=== PATIENT | male | born 1980 | race Caucasian/White ===

== ENCOUNTER 2023-05-03 14:52 | Emergency (ER) | payer OTHER, SELFPAY ==
--- NOTE | 2023-05-03 14:58 | ECG_ITS ---
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
[2023-05-03 15:00] VITALS: BP 154/89; PULSE 68; RESP 16; TEMP 36.8; O2SAT 98; BMI 30.5
[2023-05-03 15:01] VITALS: BP 154/89; PULSE 57; PULSE 63; RESP 16; RESP 19; O2SAT 95; O2SAT 98
--- NOTE | 2023-05-03 15:01 | XR_ITS ---
[address] [address] Patient Name: BALAJI LANDEROS MRN: [id number] date: 1980 Sex: M Assigned Patient Location: ER Current Patient Location: ER Accession/Order Number: [id number] Exam Date: 05/03/2023 15:22 Report Date: 05/03/2023 15:36 At the request of: LINDSAY MORGAN Procedure: XR chest 2V EXAMINATION: XR chest 2V HISTORY: pain COMPARISON: No relevant comparison available. TECHNIQUE: PA and lateral FINDINGS: LUNGS: No significant pulmonary parenchymal abnormalities. VASCULATURE: No increased pulmonary vasculature. PLEURA: No pneumothorax, effusion, or pleural thickening. CARDIAC: No cardiomegaly or cardiac silhouette abnormality. MEDIASTINUM: No visible mass or adenopathy. BONES: No fracture or visible bone lesion. OTHER: Negative. IMPRESSION: No acute disease. Electronically authenticated by: NELIA MERAZ Date: 05/03/2023 15:36
[2023-05-03 15:10] VITALS: PULSE 71
--- NOTE | 2023-05-03 15:13 | ED_ITS ---
Documented by User: Kandace Morgan 05/03/23 16:39 HPI - General Adult General Chief complaint: Chest Pain Stated complaint: DIZZINESS, BURNING IN CHEST Time Seen by Provider: 05/03/23 14:55 Source: patient Mode of arrival: walk-in Limitations: no limitations History of Present Illness HPI narrative: 42-year-old male with a history hypertension. Presents emergency room chief complaint of burning sensation to his chest. He states he has some radiation of the burning to the right side of his chest. Denies any nausea vomiting or shortness of breath. Denies any known heart history. He does have a history of high blood pressure and takes medications daily. Patient also takes omeprazole daily. He states he's had the symptoms on and off since April 30 but worsened when he woke this morning. She stated left lower quadrant abdominal pain and then had tearing sensation to his chest.His vital signs are stable he is not febrile. Pain is not reproduced with palpation to the chest. He rates the pain as a burning sensation in a two out of ten at this time Related Data Home Medications Medication Instructions Recorded Confirmed amlodipine 5 mg tablet 5 mg PO QDAY 05/03/23 05/03/23 atenolol 50 mg tablet 50 mg PO Q24H 05/03/23 05/03/23 atorvastatin 40 mg tablet 40 mg PO .QD 05/03/23 05/03/23 dextroamphetamine-amphetamine ER 30 mg PO BID 05/03/23 05/03/23 30 mg 24hr capsule,extend release montelukast 10 mg tablet 10 mg PO .HS 05/03/23 05/03/23 Allergies Allergy/AdvReac Type Severity Reaction Status Date / Time Penicillins AdvReac Verified 05/03/23 15:00 Review of Systems ROS Narrative All Systems are negative except as noted/marked.All systems reviewed and otherwise negative Exam Narrative Exam Narrative: Patient is a All Systems are negative except as noted/marked.All systems reviewed and otherwise negative Nurses note and vital signs reviewed and patient is not hypoxic. General: The patient appears well and in no apparent distress. Patient is resting comfortably on cart. Skin: Warm, dry, no pallor noted. There is no rash noted. Head: Normocephalic, atraumatic Eye: Normal conjunctiva, no drainage, EOMI. PERRL Ears, Nose, Mouth, and Throat: oral mucosa is moist. Nares patent. Mouth without vesicles. Ear canals patent. Tm's without Erythema Cardiovascular: Regular Rate and Rhythm Respiratory: Patient is in no distress, no accessory muscle use, lungs are clear to auscultation, no wheezing, rales or rhonchi Back: non-tender, no CVA tenderness bilaterally to percussion. GI: Normal bowel sounds, no tenderness to palpation, no masses appreciated. No rebound, guarding, or rigidity noted. Musculoskeletal: The patient has no evidence of calf tenderness, no pitting edema, symmetrical pulses noted bilaterally Neurological: A&O x4, normal speech Psychiatric: Cooperative Constitutional Vital Signs - 24 hr 05/03/23 15:00 05/03/23 15:01 05/03/23 15:01 Temperature 98.3 F Pulse Rate 63 57 L Pulse Rate [Monitor] 68 Respiratory Rate 16 19 16 Blood Pressure 154/89 H 154/89 H Blood Pressure [Right Arm] 154/89 H Pulse Oximetry 98 98 95 05/03/23 15:53 05/03/23 16:00 05/03/23 16:00 Temperature Pulse Rate 57 L 59 L Pulse Rate [Monitor] Respiratory Rate 14 15 Blood Pressure 139/75 H 130/70 H 130/70 H Blood Pressure [Right Arm] Pulse Oximetry 96 96 05/03/23 16:30 Temperature Pulse Rate 58 L Pulse Rate [Monitor] Respiratory Rate 19 Blood Pressure 136/80 H Blood Pressure [Right Arm] Pulse Oximetry 96 Course Vital Signs Vital signs: Vital Signs Temperature 98.3 F 05/03/23 15:00 Pulse Rate 68 05/03/23 15:00 Respiratory Rate 16 05/03/23 15:00 Blood Pressure 154/89 H 05/03/23 15:00 Pulse Oximetry 98 05/03/23 15:00 Temperature 98.3 F 05/03/23 15:00 Pulse Rate 58 L 05/03/23 16:30 Respiratory Rate 19 05/03/23 16:30 Blood Pressure 136/80 H 05/03/23 16:30 Pulse Oximetry 96 05/03/23 16:30 Medical Decision Making MDM Narrative Medical decision making narrative: Patient presented with a chief complaint of chest wall pain, indigestion and burning sensation for the last several days. Cardiac workup performed here today. Patient heart score is a 1-2 as he has a history of hypertension and hyperlipidemia. Patient's symptoms have improved with Pepcid and Toradol here in the emergency room. I believe most of his symptoms are due to anxiety indigestion. Patient states she's had a lot of picnics recently and also drinking a lot of clot alcoholic beverages which tend to give him indigestion. Patient's EKG was in normal limits here today as well. Patient's stable to be discharged home. Differential Diagnosis Differential Diagnosis: Ingestion, anxiety, chest pain Medical Records Medical records reviewed: Yes I reviewed the patient's medical records Lab Data Lab results reviewed: Yes I reviewed the patient's lab results Labs: Lab Results 05/03/23 Range/Units 15:10 WBC 7.2 (4.0-11.0) 10^3/uL RBC 5.35 (4.70-6.10) 10^6/uL Hgb 16.8 (14.0-18.0) g/dL Hct 48.6 (42.0-54.0) % MCV 90.8 (80.0-94.0) fL MCH 31.4 (25.9-34.0) pg MCHC 34.6 (29.9-35.2) g/dL RDW 13.0 (11.0-15.0) % Plt Count 163 (150-450) 10^3/uL MPV 10.1 (9.5-13.5) fL Neut % (Auto) 61.7 (43.0-75.0) % Lymph % (Auto) 28.1 (20.5-60.0) % [place] % (Auto) 8.6 (1.7-12.0) % Eos % (Auto) 1.1 (0.9-7.0) % Baso % (Auto) 0.4 (0.2-2.0) % Neut # (Auto) 4.5 (1.4-6.5) 10^3/uL Lymph # (Auto) 2.0 (1.2-3.8) 10^3/uL [place] # (Auto) 0.6 (0.3-0.8) 10^3/uL Eos # (Auto) 0.1 (0.0-0.7) 10^3/uL Baso # (Auto) 0.0 (0.0-0.1) 10^3/uL Abs Immat Gran (auto) 0.01 (0.00-0.03) 10^3/uL Imm/Tot Granulo (auto) 0.1 (0.0-0.5) % PT 11.2 (9.0-11.6) sec INR 1.06 D-Dimer <0.19 (<=0.59) mg/L FEU Sodium 138 (136-145) mmol/L Potassium 3.6 (3.5-5.1) mmol/L Chloride 105 (98-107) mmol/L Carbon Dioxide 27.4 (21.0-32.0) mmol/L Anion Gap 9.2 BUN 16.0 (7.0-18.0) mg/dL Creatinine 1.03 (0.70-1.30) mg/dL Est GFR ( Amer) >60 (>=60) Est GFR (Non-Af Amer) >60 (>=60) BUN/Creatinine Ratio 15.5 Glucose 120 H (74-106) mg/dL Calcium 9.1 (8.5-10.1) mg/dL Total Bilirubin 0.6 (0.2-1.0) mg/dL AST 33 (15-37) U/L ALT 42 (16-63) U/L Alkaline Phosphatase 65 (46-116) U/L Troponin I High Sens 46.6 (4.0-76.1) pg/mL NT-Pro-B Natriuret Pep 85.0 (<=450.0) pg/mL Total Protein 7.2 (6.4-8.2) g/dL Albumin 4.3 (3.4-5.0) g/dL Globulin 2.9 g/dL Albumin/Globulin Ratio 1.5 Lipase 187.0 (73.0-393.0) U/L ECG Data Attestation: ?I have reviewed the pertinent ECG results. Interpretation: 1503EKG shows a normal sinus rhythm with a rate of seventy-one beats. PA interval 164 ms ,QRS duration 104 ms, no ST elevation or depression, no STEMI Discharge Plan Discharge Chief Complaint: Chest Pain Clinical Impression: Gastritis, Chest pain Patient Disposition: Home, Self-Care Time of Disposition Decision: 16:38 Condition: Good Prescriptions / Home Meds: No Action amlodipine 5 mg tablet 5 mg PO QDAY atorvastatin 40 mg tablet 40 mg PO .QD atenolol 50 mg tablet 50 mg PO Q24H dextroamphetamine-amphetamine 30 mg capsule,extended release 24hr 30 mg PO BID montelukast 10 mg tablet 10 mg PO .HS Instructions: Chest Pain (ED), GERD (Gastroesophageal Reflux Disease) in Children (ED), Diet for Stomach Ulcers and Gastritis (ED) Stand Alone Forms: Portal Instructions Referrals: GEORGIA YING [Primary Care Provider] - 1 week Discharge Date/Time: 05/03/23 16:53 Documented by User: Clem Guillen 05/03/23 17:43 HPI - General Adult General Chief complaint: Chest Pain Stated complaint: DIZZINESS, BURNING IN CHEST Time Seen by Provider: 05/03/23 14:55 Related Data Home Medications Medication Instructions Recorded Confirmed amlodipine 5 mg tablet 5 mg PO QDAY 05/03/23 05/03/23 atenolol 50 mg tablet 50 mg PO Q24H 05/03/23 05/03/23 atorvastatin 40 mg tablet 40 mg PO .QD 05/03/23 05/03/23 dextroamphetamine-amphetamine ER 30 mg PO BID 05/03/23 05/03/23 30 mg 24hr capsule,extend release montelukast 10 mg tablet 10 mg PO .HS 05/03/23 05/03/23 Allergies Allergy/AdvReac Type Severity Reaction Status Date / Time Penicillins AdvReac Verified 05/03/23 15:00 Exam Constitutional Vital Signs - 24 hr 05/03/23 15:00 05/03/23 15:01 05/03/23 15:01 Temperature 98.3 F Pulse Rate 63 57 L Pulse Rate [Monitor] 68 Respiratory Rate 16 19 16 Blood Pressure 154/89 H 154/89 H Blood Pressure [Right Arm] 154/89 H Pulse Oximetry 98 98 95 05/03/23 15:53 05/03/23 16:00 05/03/23 16:00 Temperature Pulse Rate 57 L 59 L Pulse Rate [Monitor] Respiratory Rate 14 15 Blood Pressure 139/75 H 130/70 H 130/70 H Blood Pressure [Right Arm] Pulse Oximetry 96 96 05/03/23 16:30 Temperature Pulse Rate 58 L Pulse Rate [Monitor] Respiratory Rate 19 Blood Pressure 136/80 H Blood Pressure [Right Arm] Pulse Oximetry 96 Course Vital Signs Vital signs: Vital Signs Temperature 98.3 F 05/03/23 15:00 Pulse Rate 68 05/03/23 15:00 Respiratory Rate 16 05/03/23 15:00 Blood Pressure 154/89 H 05/03/23 15:00 Pulse Oximetry 98 05/03/23 15:00 Temperature 98.3 F 05/03/23 15:00 Pulse Rate 58 L 05/03/23 16:30 Respiratory Rate 19 05/03/23 16:30 Blood Pressure 136/80 H 05/03/23 16:30 Pulse Oximetry 96 05/03/23 16:30 Medical Decision Making MDM Narrative Medical decision making narrative: Patient presented with a chief complaint of chest wall pain, indigestion and burning sensation for the last several days. Cardiac workup performed here today. Patient heart score is a 1-2 as he has a history of hypertension and hyperlipidemia. Patient's symptoms have improved with Pepcid and Toradol here in the emergency room. I believe most of his symptoms are due to anxiety indigestion. Patient states she's had a lot of picnics recently and also drinking a lot of clot alcoholic beverages which tend to give him indigestion. Patient's EKG was in normal limits here today as well. Patient's stable to be discharged home. For this patient encounter I reviewed the mid-level provider?s documentation, medical decision-making and treatment plan, and I personally spent time with this patient. Shared APC visit, physician attestation: [id number]: This visit was performed by both a physician and an APC. I personally evaluated and examined the patient. I performed all aspects of MDM as documented. - JHay, DO Lab Data Labs: Lab Results 05/03/23 Range/Units 15:10 WBC 7.2 (4.0-11.0) 10^3/uL RBC 5.35 (4.70-6.10) 10^6/uL Hgb 16.8 (14.0-18.0) g/dL Hct 48.6 (42.0-54.0) % MCV 90.8 (80.0-94.0) fL MCH 31.4 (25.9-34.0) pg MCHC 34.6 (29.9-35.2) g/dL RDW 13.0 (11.0-15.0) % Plt Count 163 (150-450) 10^3/uL MPV 10.1 (9.5-13.5) fL Neut % (Auto) 61.7 (43.0-75.0) % Lymph % (Auto) 28.1 (20.5-60.0) % [place] % (Auto) 8.6 (1.7-12.0) % Eos % (Auto) 1.1 (0.9-7.0) % Baso % (Auto) 0.4 (0.2-2.0) % Neut # (Auto) 4.5 (1.4-6.5) 10^3/uL Lymph # (Auto) 2.0 (1.2-3.8) 10^3/uL [place] # (Auto) 0.6 (0.3-0.8) 10^3/uL Eos # (Auto) 0.1 (0.0-0.7) 10^3/uL Baso # (Auto) 0.0 (0.0-0.1) 10^3/uL Abs Immat Gran (auto) 0.01 (0.00-0.03) 10^3/uL Imm/Tot Granulo (auto) 0.1 (0.0-0.5) % PT 11.2 (9.0-11.6) sec INR 1.06 D-Dimer <0.19 (<=0.59) mg/L FEU Sodium 138 (136-145) mmol/L Potassium 3.6 (3.5-5.1) mmol/L Chloride 105 (98-107) mmol/L Carbon Dioxide 27.4 (21.0-32.0) mmol/L Anion Gap 9.2 BUN 16.0 (7.0-18.0) mg/dL Creatinine 1.03 (0.70-1.30) mg/dL Est GFR ( Amer) >60 (>=60) Est GFR (Non-Af Amer) >60 (>=60) BUN/Creatinine Ratio 15.5 Glucose 120 H (74-106) mg/dL Calcium 9.1 (8.5-10.1) mg/dL Total Bilirubin 0.6 (0.2-1.0) mg/dL AST 33 (15-37) U/L ALT 42 (16-63) U/L Alkaline Phosphatase 65 (46-116) U/L Troponin I High Sens 46.6 (4.0-76.1) pg/mL NT-Pro-B Natriuret Pep 85.0 (<=450.0) pg/mL Total Protein 7.2 (6.4-8.2) g/dL Albumin 4.3 (3.4-5.0) g/dL Globulin 2.9 g/dL Albumin/Globulin Ratio 1.5 Lipase 187.0 (73.0-393.0) U/L Imaging Data Chest x-ray: Radiologist's impression: Patient Name: BALAJI LANDEROS MRN: [id number] date: 1980 Sex: M Assigned Patient Location: ER Current Patient Location: ER Accession/Order Number: [id number] Exam Date: 05/03/2023 15:22 Report Date: 05/03/2023 15:36 At the request of: KANDACE MORGAN Procedure: XR chest 2V EXAMINATION: XR chest 2V HISTORY: pain COMPARISON: No relevant comparison available. TECHNIQUE: PA and lateral FINDINGS: LUNGS: No significant pulmonary parenchymal abnormalities. VASCULATURE: No increased pulmonary vasculature. PLEURA: No pneumothorax, effusion, or pleural thickening. CARDIAC: No cardiomegaly or cardiac silhouette abnormality. MEDIASTINUM: No visible mass or adenopathy. BONES: No fracture or visible bone lesion. OTHER: Negative. IMPRESSION: No acute disease. Electronically authenticated by: NELIA MERAZ Date: 05/03/2023 15: Discharge Plan Discharge Chief Complaint: Chest Pain Clinical Impression: Gastritis, Chest pain Patient Disposition: Home, Self-Care Time of Disposition Decision: 16:38 Condition: Good Prescriptions / Home Meds: No Action amlodipine 5 mg tablet 5 mg PO QDAY atorvastatin 40 mg tablet 40 mg PO .QD atenolol 50 mg tablet 50 mg PO Q24H dextroamphetamine-amphetamine 30 mg capsule,extended release 24hr 30 mg PO BID montelukast 10 mg tablet 10 mg PO .HS Instructions: Chest Pain (ED), GERD (Gastroesophageal Reflux Disease) in Children (ED), Diet for Stomach Ulcers and Gastritis (ED) Stand Alone Forms: Portal Instructions Referrals: GEORGIA YING [Primary Care Provider] - 1 week Discharge Date/Time: 05/03/23 16:53
[2023-05-03] MEDS: ASPIRIN 81 MG TAB.CHEW 324 MG PO (15:14)
[2023-05-03] MEDS: NITROGLYCERIN 0.4 MG TAB.SUBL PO (15:14)
[2023-05-03 15:16] LABS: Basophils Percent Auto 0.4 % (0.2-2.0); Eosinophils Absolute Auto 0.1 10^3/uL (0.0-0.7); Eosinophils Percent Auto 1.1 % (0.9-7.0); Hematocrit 48.6 % (42.0-54.0); Hemoglobin 16.8 g/dL (14.0-18.0); Immature Granulocytes Abs Auto 0.01 10^3/uL (0.00-0.03); Immature Granulocytes Pct Auto 0.1 % (0.0-0.5); Lymphocytes Percent Auto 28.1 % (20.5-60.0); Mean Corpuscular HGB Conc 34.6 g/dL (29.9-35.2); Mean Corpuscular Hemoglobin 31.4 pg (25.9-34.0); Mean Corpuscular Volume 90.8 fL (80.0-94.0); Mean Platelet Volume 10.1 fL (9.5-13.5); Monocytes Absolute Auto 0.6 10^3/uL (0.3-0.8); Monocytes Percent Auto 8.6 % (1.7-12.0); Neutrophils Absolute Auto 4.5 10^3/uL (1.4-6.5); Neutrophils Percent Auto 61.7 % (43.0-75.0); Platelet Count 163 10^3/uL (150-450); Red Blood Count 5.35 10^6/uL (4.70-6.10); White Blood Count 7.2 10^3/uL (4.0-11.0)
[2023-05-03 15:30] LABS: INR 1.06; Prothrombin Time 11.2 sec (9.0-11.6)
[2023-05-03 15:35] LABS: Alanine Aminotransferase 42 U/L (16-63); Albumin Globulin Ratio 1.5; Albumin Level 4.3 g/dL (3.4-5.0); Alkaline Phosphatase 65 U/L (46-116); Anion Gap 9.2; Aspartate Amino Transferase 33 U/L (15-37); BUN Creatinine Ratio 15.5; Bilirubin Total 0.6 mg/dL (0.2-1.0); Calcium 9.1 mg/dL (8.5-10.1); Carbon Dioxide 27.4 mmol/L (21.0-32.0); Chloride 105 mmol/L (98-107); D Dimer <0.19 mg/L FEU (<=0.59); Estimated GFR (African America >60 (>=60); Estimated GFR (Non-African Ame >60 (>=60); Globulin 2.9 g/dL; Glucose 120 mg/dL (74-106); Potassium 3.6 mmol/L (3.5-5.1); Sodium 138 mmol/L (136-145); Total Protein 7.2 g/dL (6.4-8.2); Troponin I High Sensitivity 46.6 pg/mL (4.0-76.1)
[2023-05-03] MEDS: FAMOTIDINE/PF 20 MG/2 ML VIAL IV (15:48)
[2023-05-03 15:53] VITALS: BP 139/75; PULSE 57; RESP 14; O2SAT 96
[2023-05-03 16:00] VITALS: BP 130/70; PULSE 59; RESP 15; O2SAT 96
[2023-05-03] MEDS: KETOROLAC TROMETHAMINE 30 MG/ML VIAL IVP (16:06)
[2023-05-03 16:30] VITALS: BP 136/80; PULSE 58; RESP 19; O2SAT 96
== END 2023-05-03 16:53 | disposition home or self-care (01) ==
PROVIDERS: Physician Assistant; Emergency Provider Emergency Medicine; PCP Family Medicine
DX: K29.70 Gastritis, unspecified, without bleeding (principal); R07.9 Chest pain, unspecified; I10 Essential (primary) hypertension; Z79.899 Other long term (current) drug therapy
CPT/HCPCS: 36415; 71046; 80053; 83690; 83880; 84484; 85025; 85378; 85610; 93005; 96374; 96375; 99285

== ENCOUNTER 2024-07-20 14:56 | Emergency (ER) | payer OTHER, SELFPAY ==
[2024-07-20 15:01] VITALS: BP 180/90; PULSE 92; TEMP 36.8; O2SAT 98; BMI 31.9
--- NOTE | 2024-07-20 15:21 | US_ITS ---
[address] [address] Patient Name: BALAJI LANDEROS MRN: [id number] date: 1980 Sex: M Assigned Patient Location: ER Current Patient Location: ED.MAIN Accession/Order Number: [id number] Exam Date: 07/20/2024 16:40 Report Date: 07/20/2024 18:46 At the request of: MARIAELENA ZHANG Procedure: US scrotum doppler EXAM: US scrotum doppler HISTORY: Pain right testicle COMPARISON: None. TECHNIQUE: Scrotal ultrasound was performed, utilizing grayscale, color, and spectral Doppler. FINDINGS: RIGHT: Testis size: 4 x 2.8 x 3.7 cm. Testis morphology: Homogeneous appearance. There is a 4.7 x 2.6 x 4.9 cm spermatocele. Testis flow: Normal testicular color and spectral Doppler. Flow is symmetric with the contralateral testis. Epididymis: Heterogeneous.. Epididymis flow: Normal epididymal flow. Symmetric flow compared to contralateral epididymis. Scrotal sac: Moderate to large complex, septated fluid Varicocele: Present. LEFT: Testis size: 3.9 x 2.4 x 2.4 cm. Testis morphology: Homogeneous appearance. No mass. Testis flow: Normal testicular color and spectral Doppler. Flow is symmetric with the contralateral testis. Epididymis: Normal size and morphology. Epididymis flow: Normal epididymal flow. Symmetric flow compared to contralateral epididymis. Scrotal sac: Minimal hydrocele. Varicocele: Present Additional findings: None. US/US scrotum doppler IMPRESSION: No evidence of torsion. No evidence of epididymoorchitis. Moderate to large complex right hydrocele. Finding can be due to recent infection or trauma. Minimal left hydrocele. Bilateral varicocele. Electronically authenticated by: JC MARY Date: 07/20/2024 18:46
--- NOTE | 2024-07-20 15:22 | ED.GENADUL1 ---
HPI HPI - General Adult General Chief complaint: Urogenital-Male Stated complaint: r testes pain Time Seen by Provider: 07/20/24 15:17 Source: patient Mode of arrival: walk-in Limitations: no limitations History of Present Illness HPI narrative: 43 year old male presents to the ED for pain to his right testicle. States he had the symptoms in April and was placed on Keflex by urology. His pain returned 1-2 weeks ago. He is scheduled for a testicular ultrasound this week. Also reports he developed low abd pressure and was treated for a UTI 2 weeks ago. He has had right flank pain for several days. Denies fever, chills, injury, N/V/D. Denies dysuria, hematuria. Denies penile lesions, discharge. Denies concern for STDs. Related Data Home Medications ?Medication ?Instructions ?Recorded ?Confirmed atenolol 50 mg tablet 50 mg PO Q24H 05/03/23 07/20/24 dextroamphetamine-amphetamine ER 30 mg PO BID 05/03/23 07/20/24 30 mg 24hr capsule,extend release montelukast 10 mg tablet 10 mg PO .HS 05/03/23 07/20/24 buspirone 15 mg tablet 15 mg PO BID 07/20/24 07/20/24 Previous Rx's ?Medication ?Instructions ?Recorded hydrocodone 5 mg-acetaminophen 325 1 tab PO Q8H PRN pain #12 tabs 07/20/24 mg tablet Allergies Allergy/AdvReac Type Severity Reaction Status Date / Time ciprofloxacin Allergy Intermediate Rash Verified 07/20/24 15:01 Penicillins AdvReac Rash Verified 07/20/24 15:01 Opioid HPI Opioid Management Most Recent Opioid Data: Last Pain Scale 6 05/03/23 15:07 Review of Systems ROS Constitutional Denies: fever or chills Ears, nose, mouth, and throat Denies: throat pain or neck pain Cardiovascular Denies: chest pain Respiratory Denies: shortness of breath or cough Gastrointestinal Denies: abdominal pain, nausea, vomiting or diarrhea Genitourinary Reports: testicular pain and scrotal swelling; Denies: painful urination, urinary frequency, urinary urgency, blood in urine or penile discharge Musculoskeletal Reports: back pain; Denies: neck pain or extremity pain Integumentary/Breast Denies: rash or new lesion PFSH PFSH Social History Little interest or pleasure in doing things: not at all Feeling down, depressed, or hopeless: not at all Exam Constitutional Vital Signs, click to edit/add: Last Vital Signs Temp 98.3 F 07/20/24 15:01 Pulse 76 07/20/24 16:22 Resp 16 07/20/24 16:22 BP 145/89 H 07/20/24 16:22 Pulse Ox 97 07/20/24 16:22 Common normals: no apparent distress and oriented x3 General appearance: cooperative Eye Common normals: conjunctivae normal and no scleral icterus Neck & C-Spine Common normals: supple Chest Chest: symmetrical chest wall rise Respiratory Common normals: normal respiratory effort and no use of accessory muscles Effort & inspection: able to speak in complete sentences Cardio Common normals: regular rate and regular rhythm GI Common normals: Normal to inspection, nondistended, normoactive bowel sounds present, soft to palpation and non-tender Common normals: no CVA tenderness Back & Pelvis Thoracic spine/upper back: normal to inspection and paraspinal muscle tenderness Thoracic paraspinal muscle tenderness: right; no thoracic spinal tenderness Lumbar spine/lower back: normal to inspection; no lumbar spinal tenderness and no paraspinal muscle tenderness Neuro Common normals: oriented x3 Sensorium/orientation: awake and alert Speech: speech normal Gait (neuro): normal gait Course Vital Signs Vital signs: Vital Signs Temperature 98.3 F 07/20/24 15:01 Pulse Rate 92 H 07/20/24 15:01 Respiratory Rate 18 07/20/24 15:01 Blood Pressure 180/90 H 07/20/24 15:01 Pulse Oximetry 98 07/20/24 15:01 Temperature 98.3 F 07/20/24 15:01 Pulse Rate 76 07/20/24 16:22 Respiratory Rate 16 07/20/24 16:22 Blood Pressure 145/89 H 07/20/24 16:22 Pulse Oximetry 97 07/20/24 16:22 Medical Decision Making MDM Narrative Medical decision making narrative: Urinalysis was unremarkable. CBC and CMP were unremarkable. CT scan showed no acute findings. Ultrasound showed a moderate to large complex right hydrocele. Findings were discussed with the patient. OARRS was reviewed. A prescription was provided for norco. Follow up with urology for a recheck, further evaluation and treatment. Medical Records Medical records reviewed: Yes I reviewed the patient's medical records Lab Data Lab results reviewed: Yes I reviewed the patient's lab results Labs: Lab Results 07/20/24 07/20/24 Range/Units 15:32 16:32 WBC 5.7 (4.0-11.0) 10^3/uL RBC 5.40 (4.70-6.10) 10^6/uL Hgb 17.3 (14.0-18.0) g/dL Hct 48.6 (42.0-54.0) % MCV 90.0 (80.0-94.0) fL MCH 32.0 (25.9-34.0) pg MCHC 35.6 H (29.9-35.2) g/dL RDW 12.7 (11.0-15.0) % Plt Count 153 (150-450) 10^3/uL MPV 10.5 (9.5-13.5) fL Neut % (Auto) 53.5 (43.0-75.0) % Lymph % (Auto) 35.7 (20.5-60.0) % [place] % (Auto) 9.0 (1.7-12.0) % Eos % (Auto) 1.2 (0.9-7.0) % Baso % (Auto) 0.4 (0.2-2.0) % Neut # (Auto) 3.0 (1.4-6.5) 10^3/uL Lymph # (Auto) 2.0 (1.2-3.8) 10^3/uL [place] # (Auto) 0.5 (0.3-0.8) 10^3/uL Eos # (Auto) 0.1 (0.0-0.7) 10^3/uL Baso # (Auto) 0.0 (0.0-0.1) 10^3/uL Abs Immat Gran (auto) 0.01 (0.00-0.03) 10^3/uL Imm/Tot Granulo (auto) 0.2 (0.0-0.5) % Sodium 138 (136-145) mmol/L Potassium 3.9 (3.5-5.1) mmol/L Chloride 102 (98-107) mmol/L Carbon Dioxide 29.6 (21.0-32.0) mmol/L Anion Gap 10.3 BUN 18.0 (7.0-18.0) mg/dL Creatinine 1.08 (0.70-1.30) mg/dL Est GFR ( Amer) >60 (>=60) Est GFR (Non-Af Amer) >60 (>=60) BUN/Creatinine Ratio 16.7 Glucose 114 H (74-106) mg/dL Calcium 9.2 (8.5-10.1) mg/dL Total Bilirubin 0.7 (0.2-1.0) mg/dL AST 26 (15-37) U/L ALT 32 (16-63) U/L Alkaline Phosphatase 75 (46-116) U/L Total Protein 7.1 (6.4-8.2) g/dL Albumin 4.2 (3.4-5.0) g/dL Globulin 2.9 g/dL Albumin/Globulin Ratio 1.4 Urine Color Yellow (YELLOW) Urine Clarity Clear (CLEAR) Urine pH 6.0 (5.0-9.0) Ur Specific [place] 1.025 (1.005-1.025) Urine Protein Negative (NEG/TRACE) mg/dL Urine Glucose (UA) Negative (NEGATIVE) mg/dL Urine Ketones Negative (NEGATIVE) mg/dL Urine Occult Blood Negative (NEGATIVE) Urine Nitrite Negative (NEGATIVE) Urine Bilirubin Negative (NEGATIVE) Urine Urobilinogen 0.2 (0.2-1.0) EU/dL Ur Leukocyte Esterase Negative (NEGATIVE) Imaging Data CT scan - abdomen: Attestation: I have reviewed the pertinent imaging results. Radiologist's impression: ITS Impressions Scrotum Ultrasound 07/20/24 15:21 IMPRESSION: No evidence of torsion. No evidence of epididymoorchitis. Moderate to large complex right hydrocele. Finding can be due to recent infection or trauma. Minimal left hydrocele. Bilateral varicocele. Electronically authenticated by: JC MARY Date: 07/20/2024 18:46 Abdomen/Pelvis CT 07/20/24 15:48 IMPRESSION: No obstructive uropathy Normal appendix Electronically authenticated by: NELIA MERAZ Date: 07/20/2024 16:02 Discharge Plan Discharge Chief Complaint: Urogenital-Male Clinical Impression: Hydrocele, Back pain Patient Disposition: Home, Self-Care Time of Disposition Decision: 19:19 Condition: Good Mode of Transportation: Private Vehicle Prescriptions / Home Meds: New hydrocodone-acetaminophen 5-325 mg tablet 1 tab PO Q8H PRN (Reason: pain) Qty: 12 0RF No Action buspirone 15 mg tablet 15 mg PO BID atenolol 50 mg tablet 50 mg PO Q24H dextroamphetamine-amphetamine 30 mg capsule,extended release 24hr 30 mg PO BID montelukast 10 mg tablet 10 mg PO .HS Hold Instructions: Doctor's Order Print Language: Occitan Instructions: Testicle Pain (ED), Back Pain (ED), Hydrocelectomy (DC) Referrals: Sherley Castro MD [Physician] - 1 week GEOR[place] YING [Primary Care Provider] - 1 week Discharge Date/Time: 07/20/24 19:58
[2024-07-20 15:43] LABS: Basophils Percent Auto 0.4 % (0.2-2.0); Eosinophils Absolute Auto 0.1 10^3/uL (0.0-0.7); Eosinophils Percent Auto 1.2 % (0.9-7.0); Hematocrit 48.6 % (42.0-54.0); Hemoglobin 17.3 g/dL (14.0-18.0); Immature Granulocytes Abs Auto 0.01 10^3/uL (0.00-0.03); Immature Granulocytes Pct Auto 0.2 % (0.0-0.5); Lymphocytes Percent Auto 35.7 % (20.5-60.0); Mean Corpuscular HGB Conc 35.6 g/dL (29.9-35.2); Mean Platelet Volume 10.5 fL (9.5-13.5); Monocytes Absolute Auto 0.5 10^3/uL (0.3-0.8); Neutrophils Percent Auto 53.5 % (43.0-75.0); Platelet Count 153 10^3/uL (150-450); Red Cell Distribution Width 12.7 % (11.0-15.0); White Blood Count 5.7 10^3/uL (4.0-11.0)
--- NOTE | 2024-07-20 15:48 | CT_ITS ---
[address] [address] Patient Name: BALAJI LANDEROS MRN: [id number] date: 1980 Sex: M Assigned Patient Location: ER Current Patient Location: Accession/Order Number: [id number] Exam Date: 07/20/2024 15:43 Report Date: 07/20/2024 16:02 At the request of: MARIAELENA ZHANG Procedure: CT abdomen pelvis wo con EXAMINATION: CT abdomen pelvis wo con HISTORY: Right flank, low abd pain COMPARISON: No relevant comparison available. TECHNIQUE: Axial, Coronal, and Sagittal images were created without IV contrast. Dose reduction techniques were achieved by using automated exposure control and/or adjustment of mA and/or kV according to patient size and/or use of iterative reconstruction technique. FINDINGS: LUNG BASES: No visible pulmonary or pleural disease. LIVER: No enlargement, atrophy, abnormal density, or significant focal lesion. BILIARY: No dilatation or calcification. PANCREAS: No lesion, fluid collection, ductal dilatation, or atrophy. SPLEEN: No enlargement or focal lesion. ADRENALS: No mass or enlargement. KIDNEYS: No mass, obstruction, or calcification. BOWEL/MESENTERY: No visible mass, obstruction, or bowel wall thickening. Normal appendix AORTA/VASCULAR: No aneurysm or dissection. RETROPERITONEUM: No mass or adenopathy. LYMPH NODES: Scattered normal-sized mesenteric lymph nodes URINARY BLADDER: No visible focal wall thickening, lesion, or calculus. PELVIC ORGANS: No visible mass. Pelvic organs appropriate for patient age. ABDOMINAL WALL: No mass or hernia. BONES: No bony lesion or fracture. Moderate degenerative changes L4-S1 OTHER: Negative. CT/CT abdomen pelvis wo con IMPRESSION: No obstructive uropathy Normal appendix Electronically authenticated by: NELIA MERAZ Date: 07/20/2024 16:02
[2024-07-20 16:16] LABS: Alanine Aminotransferase 32 U/L (16-63); Albumin Globulin Ratio 1.4; Albumin Level 4.2 g/dL (3.4-5.0); Alkaline Phosphatase 75 U/L (46-116); Anion Gap 10.3; Aspartate Amino Transferase 26 U/L (15-37); BUN Creatinine Ratio 16.7; Bilirubin Total 0.7 mg/dL (0.2-1.0); Calcium 9.2 mg/dL (8.5-10.1); Carbon Dioxide 29.6 mmol/L (21.0-32.0); Chloride 102 mmol/L (98-107); Estimated GFR (African America >60 (>=60); Estimated GFR (Non-African Ame >60 (>=60); Globulin 2.9 g/dL; Glucose 114 mg/dL (74-106); Potassium 3.9 mmol/L (3.5-5.1); Sodium 138 mmol/L (136-145); Total Protein 7.1 g/dL (6.4-8.2)
[2024-07-20 16:22] VITALS: BP 145/89; PULSE 76; O2SAT 97
[2024-07-20 17:00] LABS: Bilirubin Urine NEGATIVE (NEGATIVE); Blood Urine NEGATIVE (NEGATIVE); Clarity Urine CLEAR (CLEAR); Color Urine YELLOW (YELLOW); Glucose Urine UA NEGATIVE (NEGATIVE); Ketones Urine NEGATIVE (NEGATIVE); Leukocyte Esterase Urine NEGATIVE (NEGATIVE); Nitrite Urine NEGATIVE (NEGATIVE); Protein Urine NEGATIVE (NEG/TRACE); Specific Gravity Urine 1.025 (1.005-1.025); Urobilinogen Urine 0.2 EU/dL (0.2-1.0)
[2024-07-20 17:05] LABS: Urine Microscopic Indicated NO
[2024-07-20] MEDS: KETOROLAC TROMETHAMINE 30 MG/ML VIAL IVP (18:46)
== END 2024-07-20 19:58 | disposition home or self-care (01) ==
PROVIDERS: Nurse Practitioner Family; Emergency Provider Emergency Medicine; PCP Family Medicine
DX: N43.3 Hydrocele, unspecified (principal); M54.9 Dorsalgia, unspecified
CPT/HCPCS: 36415; 74176; 76870; 80053; 81003; 85025; 93976; 96374; 99285; J1885

== ENCOUNTER 2025-01-21 18:53 | Emergency (ER) | payer OTHER, SELFPAY ==
[2025-01-21] VITALS (13 sets, daily range): BP systolic 141–169; BP diastolic 85–98; PULSE 54–69; TEMP 36.8; O2SAT 96–99; BMI 30.5
--- NOTE | 2025-01-21 19:09 | ECG_ITS ---
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 Measurements Intervals [place] Rate: 61 P: 48 NE: 176 QRS: 69 QRSD: 100 T: 18 QT: 390 QTc: 393 Interpretive Statements 1100 Sinus rhythm 9110 normal ECG Compared to ECG 05/03/2023 15:03:31 No significant changes Electronically Signed On 01-22-2025 19:20:38 EDT by HODA ROBLES M.D.
--- NOTE | 2025-01-21 19:12 | ED.GENADUL1 ---
HPI HPI - General Adult General Chief complaint: Neck Pain/Injury Stated complaint: NECK PAIN Time Seen by Provider: 01/21/25 18:54 Source: patient Mode of arrival: walk-in History of Present Illness HPI narrative: Patient is a 44-year-old male who presents to the emergency department for an increase in neck pain associated with tingling throughout the body. He states yesterday he noted tingling in the left side of his face and left arm. He states last week he noted heaviness and numbness in his legs. He states the symptoms resolved overnight and he woke up without any paresthesias. He states this afternoon he noted a return of the tingling to the left side of the face, left arm and bilateral legs. He is ambulatory. No falls or injuries. He has a history of chronic neck pain for almost the last year that has been evaluated by neurology. He does feel an increase in neck pain since yesterday. He admits that he has anxiety and is not sure if his symptoms are caused from his anxiety. He had a headache this afternoon as well. No visual changes, speech changes or facial drooping. Related Data Home Medications ?Medication ?Instructions ?Recorded ?Confirmed atenolol 50 mg tablet 50 mg PO Q24H 05/03/23 07/20/24 dextroamphetamine-amphetamine ER 30 mg PO BID 05/03/23 07/20/24 30 mg 24hr capsule,extend release montelukast 10 mg tablet 10 mg PO .HS 05/03/23 07/20/24 buspirone 15 mg tablet 15 mg PO BID 07/20/24 07/20/24 Previous Rx's ?Medication ?Instructions ?Recorded hydrocodone 5 mg-acetaminophen 325 1 tab PO Q8H PRN pain #12 tabs 07/20/24 mg tablet ketorolac 10 mg tablet 10 mg PO TID PRN pain #10 tabs 01/21/25 methocarbamol 750 mg tablet 750 mg PO TID PRN pain #20 tabs 01/21/25 prednisone 20 mg tablet See Rx Instructions .Route 01/21/25 .COMPLEX #12 tabs Allergies Allergy/AdvReac Type Severity Reaction Status Date / Time ciprofloxacin Allergy Intermediate Rash Verified 07/20/24 15:01 Penicillins AdvReac Rash Verified 07/20/24 15:01 Opioid HPI Opioid Management Most Recent Opioid Data: Last Pain Scale 8 01/21/25 19:27 01/21/25 Review of Systems ROS Constitutional Denies: fever or chills Eyes Denies: change in vision Ears, nose, mouth, and throat Reports: neck pain; Denies: throat pain Respiratory Denies: shortness of breath or cough Gastrointestinal Denies: nausea or vomiting Musculoskeletal Reports: back pain and neck pain Integumentary/Breast Denies: rash Neurological Reports: headache and numbness in extremities Hematologic/Lymphatic Denies: easy bruising or easy bleeding PFSH PFSH Social History Little interest or pleasure in doing things: not at all Feeling down, depressed, or hopeless: not at all Exam Constitutional Vital Signs, click to edit/add: Last Vital Signs Temp 98.2 F 01/21/25 18:58 Pulse 62 01/21/25 20:45 Resp 15 01/21/25 20:45 BP 146/90 H 01/21/25 20:45 Pulse Ox 98 01/21/25 20:45 O2 Del Method Room Air 01/21/25 18:58 Course Vital Signs Vital signs: Vital Signs Temperature 98.2 F 01/21/25 18:58 Pulse Rate 61 01/21/25 18:58 Respiratory Rate 16 01/21/25 18:58 Blood Pressure 169/96 H 01/21/25 18:58 Pulse Oximetry 98 01/21/25 18:58 Oxygen Delivery Method Room Air 01/21/25 18:58 Temperature 98.2 F 01/21/25 18:58 Pulse Rate 62 01/21/25 20:45 Respiratory Rate 15 01/21/25 20:45 Blood Pressure 146/90 H 01/21/25 20:45 Pulse Oximetry 98 01/21/25 20:45 Oxygen Delivery Method Room Air 01/21/25 18:58 Medical Decision Making MDM Narrative Medical decision making narrative: This patient's symptoms are not consistent with a CVA or focal deficit. He is hemodynamically stable in the ER, he has unremarkable vital signs. EKG, laboratory studies are within normal limits. He was sent for CTs of the head and C-spine which show no evidence of acute abnormalities. He was also sent for CT angio of the head and neck which shows no evidence of vessel occlusion. Symptoms may be consistent with anxiety versus other neuropathy versus atypical migraine. Patient placed on steroid taper, muscle relaxant and NSAIDs. Follow-up with PCP and return to the emergency department if symptoms change or worsen SUPERVISED APC VISIT, PHYSICIAN ATTESTATION: Based on the medical record the care appears appropriate. ? Medical Records Medical records reviewed: Yes I reviewed the patient's medical records Lab Data Lab results reviewed: Yes I reviewed the patient's lab results Labs: Lab Results 01/21/25 Range/Units 19:20 WBC 6.3 (4.0-11.0) 10^3/uL RBC 6.02 (4.70-6.10) 10^6/uL Hgb 18.8 H (14.0-18.0) g/dL Hct 53.6 (42.0-54.0) % MCV 89.0 (80.0-94.0) fL MCH 31.2 (25.9-34.0) pg MCHC 35.1 (29.9-35.2) g/dL RDW 12.1 (11.0-15.0) % Plt Count 193 (150-450) 10^3/uL MPV 10.3 (9.5-13.5) fL Neut % (Auto) 54.3 (43.0-75.0) % Lymph % (Auto) 36.0 (20.5-60.0) % [place] % (Auto) 7.7 (1.7-12.0) % Eos % (Auto) 1.3 (0.9-7.0) % Baso % (Auto) 0.5 (0.2-2.0) % Neut # (Auto) 3.4 (1.4-6.5) 10^3/uL Lymph # (Auto) 2.3 (1.2-3.8) 10^3/uL [place] # (Auto) 0.5 (0.3-0.8) 10^3/uL Eos # (Auto) 0.1 (0.0-0.7) 10^3/uL Baso # (Auto) 0.0 (0.0-0.1) 10^3/uL Abs Immat Gran (auto) 0.01 (0.00-0.03) 10^3/uL Imm/Tot Granulo (auto) 0.2 (0.0-0.5) % Sodium 142 (136-145) mmol/L Potassium 3.7 (3.5-5.1) mmol/L Chloride 103 (98-107) mmol/L Carbon Dioxide 30.5 (21.0-32.0) mmol/L Anion Gap 12.2 BUN 14.0 (7.0-18.0) mg/dL Creatinine 1.10 (0.70-1.30) mg/dL Est GFR ( Amer) >60 (>=60 mL/min/1.73m^2) Est GFR (Non-Af Amer) >60 (>=60 mL/min/1.73m^2) BUN/Creatinine Ratio 12.7 Glucose 106 (74-106) mg/dL Calcium 9.3 (8.5-10.1) mg/dL Magnesium 1.8 (1.8-2.4) mg/dL Total Bilirubin 0.8 (0.2-1.0) mg/dL AST 33 (15-37) U/L ALT 44 (16-63) U/L Alkaline Phosphatase 87 (46-116) U/L Troponin I High Sens 42.4 (4.0-76.1) pg/mL Total Protein 7.7 (6.4-8.2) g/dL Albumin 4.3 (3.4-5.0) g/dL Globulin 3.4 g/dL Albumin/Globulin Ratio 1.3 TSH 1.662 (0.358-3.740) uIU/mL Imaging Data CT scan - head: Attestation: I have reviewed the pertinent imaging results. ECG Data Attestation: I personally reviewed and interpreted this ECG as follows: (Normal sinus rhythm at a rate of [address] elevation or ectopy. EKG reviewed by attending physician) Discharge Plan Discharge Chief Complaint: Neck Pain/Injury Clinical Impression: Acute neck pain, Paresthesia Patient Disposition: Home, Self-Care Time of Disposition Decision: 20:44 Condition: Good Prescriptions / Home Meds: New prednisone 20 mg tablet See Rx Instructions .ROUTE .COMPLEX Qty: 12 0RF Rx Instructions: 3 tabs daily for 2 days, then 2 tabs daily for 2 days, then 1 tab daily for 2 days ketorolac 10 mg tablet 10 mg PO TID PRN (Reason: pain) Qty: 10 0RF methocarbamol 750 mg tablet 750 mg PO TID PRN (Reason: pain) Qty: 20 0RF No Action buspirone 15 mg tablet 15 mg PO BID hydrocodone-acetaminophen 5-325 mg tablet 1 tab PO Q8H PRN (Reason: pain) Qty: 12 0RF atenolol 50 mg tablet 50 mg PO Q24H dextroamphetamine-amphetamine 30 mg capsule,extended release 24hr 30 mg PO BID montelukast 10 mg tablet 10 mg PO .HS Print Language: Qatari Instructions: Paresthesia (ED), Acute Neck Pain (ED) Referrals: GEORGIA YING [Primary Care Provider] - 1 week Discharge Date/Time: 01/21/25 21:13
--- OUTSIDE RECORDS SUMMARY | 2025-01-21 19:23 | XMS_ITS | CCD ---
Author Organization [facility] Care Team Providers Care Electrocardiograph Technician Name Role Phone Georgia Ying Unavailable Unavailable Unavailable ORLIN PAVON Attending Unavailable ORLIN PAVON Admitting Unavailable MARIYA, DR NELIA Ngueyn Consulting Unavailable DEONNA, DR HO Primary Care Unavailable SHAY, DR REEDER Consulting Unavailable SHAIKH HENLEY Attending Unavailable SHAIKH HENLEY Admitting Unavailable DEONNA, DR HO Consulting Unavailable DEONNA, DR HO Primary Care Unavailable ORLIN PAVON Consulting Unavailable TINA RAMIREZ Consulting Unavailable SHAIKH HENLEY Consulting Unavailable Shelby Arreola Unavailable ONEYDA FUNEZ Referring Unavailable ONEYDA FUNEZ Primary Care Unavailable MD Georgia Ying Primary Care Provider DO Vanessa Jernigan Attending Provider [phone] Vanessa Jernigan Attending Unavailable Vanessa Jernigan Admitting Unavailable Georgia Ying Primary Care Unavailable Sherley Castro Attending Unavailable GEORGIA YING Primary Care Physician [phone] Georgia Ying MD Primary Care Provider ONEYDA FUNEZ Attending Unavailable THELMA FRAZIER Attending Unavailab ONEYDA Bustillos Attending Unavailable ONEYDA FUNEZ Referring Unavailable ONEYDA FUNEZ Attending Unavailable GEORGIA YING Attending Unavailable THELMA FRAZIER Attending Unavailab THELMA Morales Attending Unavailab THELMA Morales Attending Unavailab le GEORGIA YING Attending Unavailable Allergies Allergy Classification Reported Allergen(s) Allergy Type Date of Onset Reaction(s) Facility (2 sources) Penicillins; Translations: [Penicillins] Allergy to drug (finding) Hives -[facility] DO Work Phone: (1 source) Penicillins Drug allergy (disorder) 5 [facility] Repository (14 sources) Penicillin G Drug Allergy 4 Unknown [facility] Work Phone: (2 sources) Penicillin; Translations: [PENICILLIN] Drug Allergy 4 [facility] Repository (1 source) Penicillins Drug allergy (disorder) 4 [facility] Repository (14 sources) Ciprofloxacin; Translations: [ciprofloxacin] Drug Allergy 4 Pain in throat (finding), Other [facility] (1 source) Penicillin; Translations: [penicillin] Drug Allergy Unknown (qualifier value) [facility] Comment on above: reports he was told he had a reaction as a baby. (13 sources) DULoxetine Drug Allergy 1 Unknown [facility] Healthcare (13 sources) Penicillins Drug Allergy 5 Anaphylaxis, Unknown [facility] Healthcare Medications Current Medications Medication Drug Class(es) Dates Sig (Normalized) Sig (Original) acetaminophen 325 mg / HYDROcodone bitartrate 5 mg oral tablet (9 sources) Opioid Agonist Start: 07-20-2024 take 1 tablet by mouth every eight hours as needed for pain HYDROcodone-acetam inophen (Keldron) 5-325 MG tablet 1 tab orally every 8 hours As Needed for pain 07/20/2024 Active amoxicillin 500 mg oral capsule (1 source) Penicillin-class Antibacterial Start: 08-09-2023 take 1 capsule by mouth every eight hours Amoxicillin 500 MG 1 capsule Orally tid for 10 days Patient reports he was told he is allergic to penicillin as a child, he states he has taken amoxicillin as an adult with no adverse reactions Jul, Active ascorbic acid 500 mg oral tablet (1 source) Vitamin C Start: 06-12-2024 take 1 tablet by mouth once daily Ascorbic Acid (Vitamin C) (Vitamin C) 500 mg tablet Active 500 MG PO Daily June 12, 2024 12:00am atenolol 50 mg oral tablet (14 sources) beta-Adrenergic Arsalan Start: 10-15-2023 End: 09-17-2024 atenolol (Tenormin) 50 MG tablet Indications: Essential hypertension (CMS/HCC) TAKE 1 TABLET DAILY 100 tablet 3 09/17/2024 Active Start: 08-09-2023 take 1 tablet by kadeem th every twenty-four hours Atenolol 50 MG 1 tablet Orally Once a day for 30 day(s) Jul, Active busPIRone hydrochloride 15 mg oral tablet (16 sources) Start: 04-10-2024 take 1 tablet by mouth in the morning busPIRone (Buspar) 15 MG tablet Indications: Adjustment disorder with anxiety (CMS/HCC) Take 1 tablet (15 mg) by mouth in the morning and 1 tablet (15 mg) before bedtime. 180 tablet 3 04/10/2024 Active BuSpar Active esomeprazole 40 mg delayed release oral capsule (15 sources) Proton Pump Inhibitor Start: 05-11-2024 End: 10-27-2025 take 1 capsule by mouth before mealtime esomeprazole (NexIUM) [address] capsule Indications: Gastroesophageal reflux disease without esophagitis Take 1 capsule (40 mg) by mouth in the morning. Take before meals. Do not open capsule.. 100 capsule 3 09/22/2024 10/27/2025 Active fluticasone propionate 0.05 mg/actuat metered dose nasal spray (2 sources) Corticosteroid Start: 08-09-2023 take 2 spray(s) nasal route once daily Fluticasone Propionate 50 MCG/ACT 2 sprays Nasally Once a day for 14 day(s) Jul, Active take 1 spray(s) nasal route once daily Flonase Allergy Relief 50 MCG/ACT 1 spray in each nostril Nasally Once a day for 30 day(s) Not-Taking Magnesium glycinate (1 source) Start: 07-30-2024 magnesium glycinate 400 mg, Oral Start Date: 07/30/24 Status: Ordered meloxicam 15 mg oral tablet (10 sources) Nonsteroidal Anti-inflammatory Drug Start: 07-30-2024 meloxicam (Mobic) 15 MG tablet Take 15 mg by mouth 07/30/2024 Active predniSONE 20 mg oral tablet (1 source) Start: 08-09-2023 take 1 tablet by mouth every twelve hours predniSONE 20 MG 1 tablet Orally bid for 5 day(s) Jul, Active Vitamin C 500 mg oral tablet, chewable (1 source) Start: 07-30-2024 take 1 mg by mouth once daily Vitamin C 500 mg oral tablet, chewable mg tab(s), Chewed, Daily, Refills(s) 0 Start Date: 07/30/24 Status: Ordered Completed/Discontinued Medications Medication Drug Class(es) Dates Sig (Normalized) Sig (Original) ALPRAZolam 0.25 mg oral tablet (1 source) Benzodiazepine take 1 tablet by mouth every twelve hours Xanax 0.25 MG 1 tablet Orally Twice a day Not-Taking 24 hr amphetamine aspartate 7.5 mg / amphetamine sulfate 7.5 mg / dextroamphetamine saccharate 7.5 mg / dextroamphetamine sulfate 7.5 mg extended release oral capsule (20 sources) Central Nervous System Stimulant Start: 10-05-2024 End: 12-31-2024 take 2 capsules by mouth every twenty-four hours in the morning amphetamine-dextr oamphetamine XR (Adderall XR) 30 MG 24 hr capsule Indications: ADD (attention deficit disorder) without hyperactivity Take 2 capsules (60 mg) by mouth in the morning. Do not crush or chew.. 60 capsule 2024 12/01/2024 Discontinued (Reorder) Start: 07-30-2024 Adderall XR 30 mg Cap-ER Refills(s) 0 Start Date: 07/30/24 Status: Ordered Start: 07-03-2024 End: 10-01-2024 take 2 capsules by mouth every twenty-four hours in the morning amphetamine-dextroamphetamine XR (Adderall XR) 30 MG 24 hr capsule Indications: ADD (attention deficit disorder) without hyperactivity Take 2 capsules (60 mg) by mouth in the morning. Do not crush or chew.. 60 capsule 08/31/2024 10/01/2024 Discontinued (Reorder) Start: 06-10-2024 End: 07-02-2024 take 1 capsule by mouth twice daily in the morning amphetamine-dextroamphetamine XR (Adderall XR) 30 MG 24 hr capsule Indications: ADD (attention deficit disorder) without hyperactivity TAKE 1 CAPSULE BY MOUTH TWICE DAILY (IN THE MORNING and at noon) 60 capsule 06/10/2024 07/02/2024 Discontinued (Reorder) Start: 11-06-2020 take 1 tablet by kadeem th twice daily Dextroamphetamine-Amphetamine (Adderall) 30 mg tablet Active 30 MG PO Twice daily November 06, 2020 1:00am take 1 tablet by kadeem th every twenty-four hours Adderall 30 MG 1 tablet in the morning Orally Once a day Active aspirin 81 mg delayed release oral tablet (1 source) Platelet Aggregation Inhibitor, Nonsteroidal Anti-inflammatory Drug Start: 11-07-2020 End: 06-12-2024 take 81 mg by mouth once daily Aspirin Discontinued 81 MG PO Daily 0 November 07, 2020 1:00am June 12, 2024 10:44am atorvastatin 80 mg oral tablet (4 sources) HMG-CoA Reductase Inhibitor Start: 11-07-2020 End: 06-12-2024 take 80 mg by mouth once daily in the evening Atorvastatin Discontinued 80 MG PO Every evening 30 November 07, 2020 1:00am June 12, 2024 10:44am take 1 tablet by kadeem th every twenty-four hours Atorvastatin Calcium 40 MG 1 tablet Oral ly Once a day Active Brompheniramine / Pseudoephedrine (1 source) alpha-Adrenergic Agonist Start: 10-30-2017 take 10 mL by mouth every four hours as needed Bromfed DM 30-2-10 MG/5ML 10 ml as needed Orally every 4 hrs Oct, Not-Taking famotidine 20 mg oral tablet (2 sources) Histamine-2 Receptor Antagonist Start: 05-11-2024 End: 09-10-2024 take 1 tablet by mouth at bedtime famotidine (Pepcid) 20 MG tablet Indications: Gastroesophageal reflux disease without esophagitis Take 1 tablet (20 mg) by mouth at bedtime for 14 days 14 tablet 05/11/2024 09/10/2024 Discontinued (Therapy completed) lisinopril 20 mg oral tablet (2 sources) Angiotensin Converting Enzyme Inhibitor Start: 12-06-2014 End: 06-12-2024 take 20 mg by mouth once daily Lisinopril Discontinued 20 MG PO Daily November 06, 2020 1:00am June 12, 2024 10:45am metoprolol tartrate 25 mg oral tablet (3 sources) beta-Adrenergic Arsalan Start: 11-07-2020 End: 06-18-2024 take 12.5 mg by mouth twice daily Metoprolol Tartrate Discontinued 12.5 MG PO Twice daily November 07, 2020 1:00am June 18, 2024 9:07am take 0.5 tablet by mouth twice d bella Metoprolol Tartrate 25 MG Oral Tablet TAKE 0.5 TABLET Twice daily Quantity: 0 Refills: 0 Ordered: 08-Aug-2021 DO Active nitroglycerin 0.4 mg sublingual tablet (1 source) Nitrate Vasodilator Start: 11-07-2020 End: 06-12-2024 Nitroglycerin Discontinued 0.4 MG SUBLINGUAL Every 5 minutes x 3 doses November 07, 2020 1:00am June 12, 2024 10:45am Problems Active Problems Problem Classification Problem Date Documented Da te Episodic/Chronic Abdominal hernia (12 sources) Inguinal hernia; Translations: [Unilateral inguinal hernia, without obstruction or gangrene, not specified as recurrent] Onset: 07-30-2024 Episodic Abdominal pain (1 source) Right upper quadrant pain; Translations: [Right upper quadrant pain] Onset: 12-26-2023 Episodic Acute myocardial infarction (20 sources) Myocardial infarction; Translations: [Non-ST elevation (NSTEMI) myocardial infarction] Onset: 11-07-2020 10-09-2023 Chronic Adjustment disorders (13 sources) Adjustment disorder with anxious mood; Translations: [Adjustment disorder with anxiety] Onset: 09-11-2017 05-13-2023 Chronic Attention-deficit, conduct, and disruptive behavior disorders (1 source) Attention-deficit hyperactivity disorder, unspecified type; Translations: [ADHD UNSPECIFIED TYPE] Onset: 07-26-2021 Chronic Coronary atherosclerosis and other heart disease (1 source) Old myocardial infarction; Translations: [OLD MYOCARDIAL INFARCTION] Onset: 01-23-2022 Chronic Diabetes mellitus without complication (2 sources) Abnormal glucose tolerance test; Translations: [Other abnormal glucose] 09-22-2024 Episodic Disorders usually diagnosed in infancy, childhood, or adolescence (20 sources) Attention deficit hyperactivity disorder, predominantly inattentive type; Translations: [Other specified behavioral and emotional disorders with onset usually occurring in childhood and adolescence] Onset: 04-02-2023 07-31-2024 Chronic E Codes: Natural/environment (1 source) Other and unspecified overexertion or strenuous movements or postures, initial encounter; Translations: [OTH AND UNS OVREXRT/STRN MVMT/POS INT] Onset: 01-23-2022 Episodic Esophageal disorders (9 sources) Gastro-esophageal reflux disease without esophagitis; Translations: [Gastroesophageal reflux disease without esophagitis] Onset: 06-18-2024 09-22-2024 Chronic Essential hypertension (20 sources) Benign essential hypertension; Translations: [Benign essential hypertension] Onset: 06-16-2009 10-09-2023 Chronic Genitourinary symptoms and ill-defined conditions (2 sources) Nocturia; Translations: [Nocturia] 09-22-2024 Episodic Headache; including migraine (13 sources) Migraine without aura, not refractory ; Translations: [Migraine without aura, not intractable, without status migrainosus] Onset: 10-16-2023 10-16-2023 Chronic Hyperplasia of prostate (12 sources) Benign prostatic hypertrophy with outflow obstruction; Translations: [Benign prostatic hyperplasia with lower urinary tract symptoms] Onset: 07-30-2024 Chronic Joint disorders and dislocations; trauma-related (13 sources) Derangement of left knee; Translations: [Unspecified internal derangement of left knee] Onset: 05-13-2023 05-13-2023 Chronic Neoplasms of unspecified nature or uncertain behavior (13 sources) Polycythemia vera (clinical); Translations: [Polycythemia vera] Onset: 06-23-2018 05-13-2023 Chronic Osteoarthritis (13 sources) Osteoarthritis; Translations: [Unspecified osteoarthritis, unspecified site] Onset: 06-22-2015 05-13-2023 Chronic Other acquired deformities (13 sources) Contracture of joint of right ankle; Translations: [Contracture, right ankle] Onset: 05-13-2023 05-13-2023 Chronic Other aftercare (1 source) intermodal owner operator truck driver (current) use of aspirin; Translations: [MEDIA RELATIONS DIRECTOR CURRENT USE OF ASPIRIN] Onset: 01-23-2022 Episodic Other aftercare (1 source) Other group home (current) drug therapy; Translations: [OTH MEDIA RELATIONS DIRECTOR CURRENT DRUG THERAPY] Onset: 01-23-2022 Episodic Other hematologic conditions (2 sources) Protein level - finding; Translations: [Other abnormal blood chemistry] Episodic Other infections; including parasitic (2 sources) Personal history of other infectious and parasitic diseases; Translations: [Personal history of COVID-19] Episodic Other male genital disorders (12 sources) Spermatocele; Translations: [Spermatocele of epididymis, unspecified] Onset: 07-30-2024 Episodic Other nervous system disorders (13 sources) Circadian rhythm sleep disorder of shift work type; Translations: [Circadian rhythm sleep disorder, shift work type] Onset: 07-06-2021 05-13-2023 Chronic Other nervous system disorders (13 sources) Inattention; Translations: [Attention and concentration deficit] Onset: 10-16-2023 10-16-2023 Chronic Other nervous system disorders (4 sources) 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; Translations: [Lesion of ulnar nerve, bilateral upper limbs] Onset: 10-01-2024 10-01-2024 Chronic Other nervous system disorders (4 sources) Bilateral carpal tunnel syndrome; Translations: [Carpal tunnel syndrome, bilateral upper limbs] Onset: 10-01-2024 10-01-2024 Chronic Other nervous system disorders (12 sources) Skin sensation disturbance; Translations: [Unspecified disturbances of skin sensation] Onset: 09-10-2024 09-10-2024 Episodic Other non-traumatic joint disorders (3 sources) Pain in left knee; Translations: [PAIN IN LEFT KNEE] Onset: 01-22-2022 Episodic Other nutritional; endocrine; and metabolic disorders (2 sources) Obesity; Translations: [Obesity, unspecified] Chronic Other screening for suspected conditions (not mental disorders or infectious disease) (13 sources) Raised cardiac enzyme or marker; Translations: [Other specified abnormal findings of blood chemistry] Onset: 09-10-2024 10-09-2023 Episodic Other upper respiratory disease (13 sources) Allergic rhinitis due to pollen; Translations: [Allergic rhinitis due to pollen] Onset: 04-02-2023 04-02-2023 Chronic Residual codes; unclassified (13 sources) Obstructive sleep apnea syndrome; Translations: [Obstructive sleep apnea (adult) (pediatric)] Onset: 06-24-2017 03-05-2024 Chronic Residual codes; unclassified (13 sources) Hypersomnia; Translations: [Hypersomnia, unspecified] Onset: 03-05-2024 03-05-2024 Chronic Residual codes; unclassified (1 source) Personal history of other specified conditions Episodic Residual codes; unclassified (1 source) Pain, unspecified; Translations: [Pain, unspecified] Onset: 12-26-2023 Episodic Screening and history of mental health and substance abuse codes (2 sources) Ex-smoker; Translations: [Personal history of tobacco use] Episodic Comment on above: quit 1999; Sprains and strains (1 source) Sprain of unspecified site of left knee, initial encounter; Translations: [SPRAIN UNS SITE LT KNEE INITIAL] Onset: 01-23-2022 Episodic Substance-related disorders (1 source) Nicotine dependence, chewing tobacco, uncomplicated; Translations: [NICOTINE DEPEND CHEW TOBACCO UNCOMP] Onset: 07-26-2021 Chronic Unclassified (1 source) CONTACT W/AND (SUSP) EXPOS COVID-19; Translations: [CONTACT W/AND (SUSP) EXPOS COVID-19] Onset: 07-26-2021 Past or Other Problems Problem Classification Problem Date Documented Date Episodic/Chronic Cardiac dysrhythmias (6 sources) Palpitations; Translations: [Palpitations] Onset: 07-23-2021 Episodic Conditions associated with dizziness or vertigo (20 sources) Vertigo; Translations: [Dizziness and giddiness] Onset: 05-13-2023 05-13-2023 Episodic Inflammatory conditions of male genital organs (13 sources) Epididymitis without abscess; Translations: [Epididymitis] Onset: 05-18-2024 05-18-2024 Episodic Nonspecific chest pain (16 sources) Atypical chest pain; Translations: [Other chest pain] Onset: 03-14-2015 10-09-2023 Episodic Other connective tissue disease (15 sources) Spasm of cervical paraspinous muscle; Translations: [Other muscle spasm] Onset: 03-05-2024 03-05-2024 Episodic Other connective tissue disease (13 sources) Muscle pain; Translations: [Myalgia, unspecified site] Onset: 06-04-2024 06-04-2024 Episodic Other liver diseases (1 source) Abnormal levels of other serum enzymes; Translations: [ABNORMAL LEVELS OTHER SERUM ENZYMES] Onset: 07-26-2021 Episodic Otitis media and related conditions (14 sources) Unspecified nonsuppurative otitis media, left ear; Translations: [Infection of ear] Onset: 08-13-2023 Episodic Residual codes; unclassified (13 sources) Insomnia; Translations: [Insomnia, unspecified] Onset: 07-06-2021 05-13-2023 Episodic Residual codes; unclassified (13 sources) Amnesia; Translations: [Other amnesia] Onset: 07-06-2021 05-13-2023 Episodic Spondylosis; intervertebral disc disorders; other back problems (15 sources) Neck pain; Translations: [Cervicalgia] Onset: 03-05-2024 03-05-2024 Episodic Viral infection (20 sources) Disease caused by 2019-nCoV; Translations: [COVID-19] Onset: 11-07-2020 10-09-2023 Episodic Results Test Name Value Interpretation Reference Range Facility CBC (INCLUDES DIFF/PLT)on Basophils (Bld) [#/Vol] 0.012 10*3/uL Normal 0-200 [facility] Comment on above: Performed By: #### 6 [id number], [id number] #### [facility] [address] [employer]: Guera León #### [id number] #### [facility] [address], [address] [place] [address] [employer]: Pasquale Taveras MD Basophils/100 WBC (Bld) 0.3 % Normal [facility] Comment on above: Performed By: #### 6 [id number], [id number] #### [facility] [address] [employer]: Guera León #### [id number] #### [facility] [address], [address] [place] [address] [employer]: Pasquale Taveras MD Eosinophils (Bld) [#/Vol] 0.092 10*3/uL Normal 15-500 [facility] Comment on above: Performed By: #### 6 399, [id number] #### [facility] [address] [place] [address] [employer]: Guera León #### [phone] #### [facility] [address], [address] [place] [address] [employer]: Pasquale Taveras MD Eosinophils/100 WBC (Bld) 2.3 % Normal [facility] Comment on above: Performed By: #### 6 399, [id number] #### [facility] [address] [employer]: Guera León #### [phone] #### [facility] [address], [address] [place] [address] [employer]: Pasquale Taveras MD Erythrocyte distribution width (RBC) [Ratio] 13.2 % Normal 11.0-15.0 [facility] Comment on above: Performed By: #### 6 399, [id number] #### [facility] [address] [place], [place] [id number] [employer]: Guera León #### [id number] #### [facility] [address], [address] [place] [address] [employer]: Pasquale Taveras MD Hematocrit (Bld) [Volume fraction] 55.8 % High 38.5-50.0 [facility] Comment on above: Performed By: #### 6 399, [id number] #### [facility] [address] [employer]: Guera León #### 7600 #### [facility] [address], [address] [place] [address] [employer]: Pasquale Taveras MD Hemoglobin (Bld) [Mass/Vol] 19.1 g/dL High 13.2-17.1 [facility] Comment on above: Result Comment: Veri fied by repeat analysis. Performed By: #### 6 399, [id number] #### [facility] [address] [place], [place] [id number] [employer]: Guera León #### [id number] #### [facility] [address], [address] [place] [address] [employer]: Pasquale Taveras MD Lymphocytes (Bld) [#/Vol] 1.936 10*3/uL Normal 850-3900 [facility] Comment on above: Performed By: #### 6 399, [id number] #### [facility] [address] [place] [address] [employer]: Guera León #### [id number] #### [facility] [address], [address] [place] [address] [employer]: Pasquale Taveras MD Lymphocytes/100 WBC (Bld) 48.4 % Normal [facility] Comment on above: Performed By: #### 6 [id number], [id number] #### [facility] [address] [place] [address] [employer]: Guera León #### [phone] #### [facility] [place] [address] [employer]: Pasquale Taveras MD MCH (RBC) [Entitic mass] 31.6 pg Normal 27.0-33.0 [facility] Comment on above: Performed By: #### 6 399, [id number] #### [facility] [address] [place] [address] [employer]: Guera León #### 7600 #### [facility] [place] [address] [employer]: Pasquale Taveras MD MCHC (RBC) [Mass/Vol] 34.2 g/dL Normal 32.0-36.0 [facility] Comment on above: Result Comment: For adults, a slight decrease in the calculated MCHC value (in the range of 30 to 32 g/dL) is most likely not clinically significant; however, it should be interpreted with caution in correlation with other red cell parameters and the patient's clinical condition. Performed By: #### 6 399, [id number] #### [facility] [address] [place] [address] [employer]: Guera León #### [phone] #### [facility] [address], [address] [place] [address] [employer]: Pasquale Taveras MD MCV (RBC) [Entitic vol] 92.2 fL Normal 80.0-100.0 [facility] Comment on above: Performed By: #### 6 399, [id number] #### [facility] [address] [place] [address] [employer]: Guera León #### 7600 #### [facility] [address], [address] [place] [address] [employer]: Pasquale Taveras MD Monocytes (Bld) [#/Vol] 0.472 10*3/uL Normal 200-950 [facility] Comment on above: Performed By: #### 6 399, [id number] #### [facility] [address] [place] [id number] [employer]: Guera León #### 7600 #### [facility] [address], [address] [place] [address] [employer]: Pasquale Taveras MD Monocytes/100 WBC (Bld) 11.8 % Normal [facility] Comment on above: Performed By: #### 6 399, [id number] #### [facility] [address] [place] [address] [employer]: Guera León #### 7600 #### [facility] [place] [address] [employer]: Pasquale Taveras MD Neutrophils (Bld) [#/Vol] 1.488 10*3/uL Low 5372-3919 [facility] Comment on above: Performed By: #### 6 399, [id number] #### [facility] [address] [place] [address] [employer]: Guera León #### 7600 #### [facility] [place] [address] [employer]: Pasquale Taveras MD Neutrophils/100 WBC (Bld) 37.2 % Normal [facility] Comment on above: Performed By: #### 6 399, [id number] #### [facility] [address] [place] [address] [employer]: Guera León #### 7600 #### [facility] of [address], [address] [place] [address] [employer]: Pasquale Taveras MD Platelet mean volume (Bld) [Entitic vol] 10.5 fL Normal 7.5-12.5 [facility] Comment on above: Performed By: #### 6 399, [id number] #### [facility] [address] [place] [address] [employer]: Guera León #### 7600 #### [facility] [address], [address] [place] [address] [employer]: Pasquale Taveras MD Platelets (Bld) [#/Vol] 175 10*3/uL Normal 140-400 [facility] Comment on above: Performed By: #### 6 399, 40913 #### [facility] [address] [employer]: Guera León #### 7600 #### [facility] [address], [address] [place] [address] [employer]: Pasquale Taveras MD RBC (Bld) [#/Vol] 6.05 10*6/uL High 4.20-5.80 [facility] Comment on above: Performed By: #### 6 399, 48489 #### [facility] [address] [employer]: Guera León #### 7600 #### [facility] [address], [address] [place] [address] [employer]: Pasquale Taveras MD WBC (Bld) [#/Vol] 4.0 10*3/uL Normal 3.8-10.8 [facility] Comment on above: Performed By: #### 6 399, 11893 #### [facility] [address] [place] [address] [employer]: Guera León #### 7600 #### [facility] of [address] , [address] [place] [address] [employer]: Paqsuale Taveras MD [facility] 09-24-2024 Albumin [Mass/Vol] 4.7 g/dL Normal 3.6-5.1 [facility] Comment on above: Performed By: #### 6 399, 28662 #### [facility] [employer]: Guera León #### 7600 #### [facility] [place] [address] [place] , [address] [place] [address] [employer]: Pasquale Taveras MD Albumin/Globulin [Mass ratio] 1.7 {ratio} Normal 1.0-2.5 [facility] Comment on above: Performed By: #### 6 399, 61169 #### [facility] [address] [employer]: Guera León #### 7600 #### [facility] [address], [address] [place] [address] [employer]: Pasquale Taveras MD ALP [Catalytic activity/Vol] 49 U/L Normal 36-130 [facility] Comment on above: Performed By: #### 6 399, 85539 #### [facility] [address] [place], [place] [id number] [employer]: Guera León #### 7600 #### [facility] of [address] , [address] [place] [address] [employer]: Pasquale Taveras MD ALT [Catalytic activity/Vol] 30 U/L Normal 9-46 [facility] Comment on above: Performed By: #### 6 399, 39008 #### [facility] [address] [place], [place] [id number] [employer]: Guera León #### 7600 #### [facility] [address] , [address] [place] [address] [employer]: Pasquale Taveras MD AST [Catalytic activity/Vol] 33 U/L Normal 10-40 [facility] Comment on above: Performed By: #### 6 399, 70985 #### [facility] [address] [place], [place] [id number] [employer]: Guera León #### 7600 #### [facility] [address], [address] [place] [address] [employer]: Pasquale Taveras MD Bilirubin [Mass/Vol] 1.2 mg/dL Normal 0.2-1.2 [facility] Comment on above: Performed By: #### 6 399, 53932 #### [facility] [employer]: Guera León #### 7600 #### [facility] [address], [address] [place] [address] [employer]: Pasquale Taveras MD BUN/CREATININE RATIO SEE NOTE: Normal - [facility] Comment on above: Result Comment: Not Reported: BUN and Creatinine are within reference range. Performed By: #### 6 399, 02567 #### [facility] [address] [place] [address] [employer]: Guera León #### 7600 #### [facility] [address], [address] [place] [address] [employer]: Pasquale Taveras MD Calcium [Mass/Vol] 10.0 mg/dL Normal 8.6-10.3 [facility] Comment on above: Performed By: #### 6 399, 43940 #### [facility] [address] [place], [place] [id number] [employer]: Guera León #### 7600 #### [facility] [address], [address] [place] [address] [employer]: Pasquale Taveras MD Chloride [Moles/Vol] 105 mmol/L Normal 98-110 [facility] Comment on above: Performed By: #### 6 399, 63956 #### [facility] [address] [place], [place] [id number] [employer]: Guera León #### 7600 #### [facility] [address], [address] [place] [address] [employer]: Pasquale Taveras MD CO2 [Moles/Vol] 33 mmol/L High 20-32 [facility] Comment on above: Performed By: #### 6 399, 25642 #### [facility] [address] [place] [address] [employer]: Guera León #### 7600 #### [facility] [address], [address] [place] [address] [employer]: Pasquale Taveras MD Creatinine [Mass/Vol] 0.93 mg/dL Normal 0.60-1.29 [facility] Comment on above: Performed By: #### 6 399, 50599 #### [facility] [address] [place] [address] [employer]: Guera León #### 7600 #### [facility] [address], [address] [place] [address] [employer]: Pasquale Taveras MD GFR/1.73 sq M.predicted among non-blacks MDRD (S/P/Bld) [Vol rate/Area] 104 mL/min/{1.73_m2} Normal > OR = 60 [facility] Comment on above: Performed By: #### 6 399, 30842 #### [facility] [address] [place] [address] [employer]: Guera León #### 7600 #### [facility] [address], [address] [place] [address] [employer]: Pasquale Taveras MD Globulin (S) [Mass/Vol] 2.7 g/dL Normal 1.9-3.7 [facility] Comment on above: Performed By: #### 6 399, 70227 #### [facility] [address] [place], [place] [id number] [employer]: Guera León #### 7600 #### [facility] [place] [address] [place] , [address] [place] [address] [employer]: Pasquale Taveras MD Glucose [Mass/Vol] 85 mg/dL Normal 65-99 [facility] Comment on above: Result Comment: Fasting reference interval Performed By: #### 6 399, 32544 #### [facility] [address] [place], [place] [id number] [employer]: Guera León #### 7600 #### [facility] [place] [address] [place] , [address] [place] [address] [employer]: Pasquale Taveras MD Potassium [Moles/Vol] 4.7 mmol/L Normal 3.5-5.3 [facility] Comment on above: Performed By: #### 6 399, 17967 #### [facility] [address] [place] [address] [employer]: Guera León #### 7600 #### [facility] [place] [address] [place] , [address] [place] [address] [employer]: Pasquale Taveras MD Protein [Mass/Vol] 7.4 g/dL Normal 6.1-8.1 [facility] Comment on above: Performed By: #### 6 399, 96960 #### [facility] [address] [place] [address] [employer]: Guera León #### 7600 #### [facility] [place] [address] [place] , [address] [place], [place] [id number] [employer]: Pasquale Taveras MD Sodium [Moles/Vol] 143 mmol/L Normal 135-146 [facility] Comment on above: Performed By: #### 6 399, 49208 #### [facility] [address] [place], [place] [id number] [employer]: Guera León #### 7600 #### [facility] [place] [address] [place] , [address] [place] [address] [employer]: Pasquale Taveras MD Urea nitrogen [Mass/Vol] 22 mg/dL Normal 7-25 [facility] Comment on above: Performed By: #### 6 399, 13479 #### [facility] [address] [place] [address] [employer]: Guera León #### 7600 #### [facility] [address], [address] [place] [address] [employer]: Pasquale Taveras MD LIPID PANEL, [place] [address] Cholesterol [Mass/Vol] 180 mg/dL Normal <200 [facility] Comment on above: Order Comment: FASTI NG:YES FASTING: YES Performed By: #### 6 399, 60756 #### [facility] [address] [place] [address] [employer]: Guera León #### 7600 #### [facility] [address], [address] [place] [address] [employer]: Pasquale Taveras MD Cholesterol in HDL [Mass/Vol] 54 mg/dL Normal > OR = 40 [facility] Comment on above: Order Comment: FASTI NG:YES FASTING: YES Performed By: #### 6 399, 76853 #### [facility] [address] [place] [address] [employer]: Guera León #### 7600 #### [facility] [address], [address] [place] [address] [employer]: Pasquale Taveras MD Cholesterol in LDL [Mass/Vol] 111 mg/dL High [facility] Comment on above: Order Comment: FASTI NG:YES FASTING: YES Result Comment: Refe rence range: <100 Desirable range <100 mg/dL for primary prevention; <70 mg/dL for patients with CHD or diabetic patients with > or = 2 CHD risk factors. LDL-C is now calculated using the Naveen calculation, which is a validated novel method providing better accuracy than the Friedewald equation in the estimation of LDL-C. Solo PERDOMO et al. YASMIN. 2013;310(19): 3097-9681 (http://education.[employer].Pomelo/faq/JHB627) Performed By: #### 6 399, 35897 #### [facility] [address] [place] [address] [employer]: Guera León #### 7600 #### [facility] [address], [address] [place] [address] [employer]: Pasquale Taveras MD Cholesterol.total/C holesterol in HDL [Mass ratio] 3.3 {ratio} Normal <5.0 [facility] Comment on above: Order Comment: FASTI NG:YES FASTING: YES Performed By: #### 6 399, 10875 #### [facility] [address] [place] [address] [employer]: Guera León #### 7600 #### [facility] [address], [address] [place] [address] [employer]: Pasquale Taveras MD NON HDL CHOLESTEROL 126 mg/dL (calc) Normal <130 [facility] Comment on above: Order Comment: FASTI NG:YES FASTING: YES Result Comment: For patients with diabetes plus 1 major ASCVD risk factor, treating to a non-HDL-C goal of <100 mg/dL (LDL-C of <70 mg/dL) is considered a therapeutic option. Performed By: #### 6 399, 28460 #### [facility] [address] [place], [place] [id number] [employer]: Guera León #### 7600 #### [facility] [address], [address] [place] [address] [employer]: Pasquale Taveras MD Triglyceride [Mass/Vol] 67 mg/dL Normal <150 [facility] Comment on above: Order Comment: FASTI NG:YES FASTING: YES Performed By: #### 6 399, 16062 #### [facility] [address] [place] [address] [employer]: Guera León #### 7600 #### [facility] [address] [facility], [address] [employer]: Pasquale Taveras MD PSA, TOTALon 09-24-2024 PSA, TOTAL 0.27 ng/mL Normal < OR = 4.00 [facility] Comment on above: Result Comment: The total PSA value from this assay system is standardized against the WHO standard. The test result will be approximately 20% lower when compared to the equimolar-standardized total PSA (Mitchell Rochelle). Comparison of serial PSA results should be interpreted with this fact in mind. This test was performed using the Siemens chemiluminescent method. Values obtained from different assay methods cannot be used interchangeably. PSA levels, regardless of value, should not be interpreted as absolute evidence of the presence or absence of disease. Performed By: #### 6 399, 18387 #### [facility] [address] [place] [id number] [employer]: Guera León #### 7600 #### [facility] [address], [address] [place] [address] [employer]: Pasquale Taveras MD Ambulatory Visit Summaryon 1 Ambulatory Visit Summary Ambulatory Visit Summary BALAJI ELIZABETH :1980 Visit Date:07/30/2024 Ambulatory Visit Instructions Your Diagnosis Spermatocele BPH with urinary obstruction Inguinal hernia Your Care Team Attending Physician - Sherley Castro MD. Primary Care Physician - GE[place] YING MD This Is Your Medications List meloxicam (meloxicam 15 mg Tab) Contact prescribing physician if questions or concerns amphetamine-dextroamph etamine (Adderall XR 30 mg Cap-ER) ascorbic acid (Vitamin C 500 mg oral tablet, chewable) atenolol (atenolol 50 mg Tab) busPIRone (busPIRone 15 mg Tab) esomeprazole (esomeprazole 40 mg Cap-EC) magnesium glycinate Procedures Performed Rotator cuff repair. Discharge Vitals Heart Rate (Peripheral) 78 Blood Pressure 145/93 Height 184 cm Height 72 in Weight 107 kg Weight 235.4 lb BMI 31.6 What to do next You Need to Schedule the Following Appointments Follow Up with Matthew PERDOMO, PETE Arnold, URO When: Where: Medications What How Much When Instructions New meloxicam (meloxicam 15 mg Tab) 1 Tablets By Mouth Every day Refills: 1 Take for 2 -4 weeks for scrotal pain Pickup at [facility] Unchanged amphetamine-dextroamph etamine (Adderall XR 30 mg Cap-ER) Contact prescribing physician if questions or concerns Unchanged ascorbic acid (Vitamin C 500 mg oral tablet, chewable) Chewed Every day Contact prescribing physician if questions or concerns Unchanged atenolol (atenolol 50 mg Tab) Contact prescribing physician if questions or concerns Unchanged busPIRone (busPIRone 15 mg Tab) Contact prescribing physician if questions or concerns Unchanged esomeprazole (esomeprazole 40 mg Cap-EC) Contact prescribing physician if questions or concerns Unchanged magnesium glycinate 400 Milligram By Mouth Contact prescribing physician if questions or concerns Pharmacy Information [facility]: [address] [place], [place] [id number] [phone] Allergies Cipro (Throat discomfort) penicillin (Unknown) Problems Ongoing - Any problem that you are currently receiving treatment for. Benign essential hypertension BPH with urinary obstruction Inguinal hernia Spermatocele Patient Survey You may receive a survey via text or e-mail asking about your office visit. Please share your experience with us by completing your survey. We appreciate your feedback and thank you for choosing us for your care. Education Materials Spermatocele A spermatocele is a fluid-filled sac (cyst) inside the sac that holds the testicles (scrotum). This type of cyst often forms in the epididymis. The epididymis is a coiled tube at the top of each testicle, and this tube is where sperm are stored. The cyst sometimes forms along a tube called the vas deferens, which is a tube that carries sperm away from the epididymis. Spermatoceles are usually painless. Most cysts are small, but they can grow larger. Spermatoceles are not cancerous (are benign). What are the causes? The cause of this condition is not known. However, this condition usually results from a blockage in one of the many small tubes (tubules) that carry sperm from your testicle to your vas deferens. What are the signs or symptoms? In most cases, small cysts do not cause symptoms. However, symptoms sometimes occur. Symptoms of this condition include: ? Dull pain. ? A feeling of heaviness. ? An enlarged scrotum, if your cyst is large. How is this diagnosed? This condition is diagnosed based on a physical exam. ? You or your health care provider may notice your cyst when feeling your scrotum. ? Your health care provider may shine a light through (transilluminate) your scrotum to see if light will pass through your cyst. You may have an ultrasound of the scrotum to rule out a tumor. How is this treated? Small spermatoceles do not need to be treated. If your spermatocele has grown large or is uncomfortable, your health care provider may recommend surgery to remove it. Follow these instructions at home: ? Check your spermatocele regularly for any changes. ? Do regular self-exams of your scrotum. ? Keep all follow-up visits. This is important. Contact a health care provider if: ? Your spermatocele gets larger. ? You have pain in your scrotum. ? Your spermatocele comes back after treatment. Get help right away if: ? You experience severe pain and redness of your scrotum. Summary ? A spermatocele is a fluid-filled sac, or a cyst, inside the sac that holds the testicles (scrotum). This condition is usually painless, and it is not cancerous (is benign). ? Your health care provider may recommend surgery to remove your spermatocele if it grows large or is uncomfortable. ? If you have a spermatocele, check for any changes and do self-exams of your scrotum. ? Keep all follow-up visits. This is important. This (more content not included)... Normal [facility] Urology Office/Clinic Noteon 07-30-2024 Urology Office/Clinic Note Urology Office/Clinic Note Chief Complaint follow up [facility] ER HPI Staff 43 year old male new patient here for follow up to [facility] ER 07/20/24 due to right testicle pain. symptoms started in April and was placed on Keflex for 2 weeks by pcp states this did help but about 3 weeks later he started having low abd pressure and was treated for a possible uti- denied having any urinary symptoms at that time, was given 1 week of Macrobid. scrotal US 07/20/24- Right testis showed there is a 4.7 x 2.6 x 4.9 cm spermatocele. Left testis minimal left hydrocele. Bilateral varicocele. No evidence of torsion. CT abdomen/pelvis 07/20/24- negative Patient states for about a year he has been getting random episodes of right testicle pain Denies any swelling, states he can feel a lump on the top of his testicle. Dysuria: no Incomplete bladder emptying: no Hematuria: no Frequency: no Urgency: no Nocturia: no Stream: good stream Leaking: no Post void dripping: no Wearing pads/ Depends: no Urge incontinence: no Stress incontinence: no Incontinence without Sensory Awareness: no Abdominal pain: no Flank pain: no Sexual complaints: no History of Present Illness Tests reviewed: reviewed UA, external records: scrotal US, CT, labs, UCx I have reviewed the previous health record information and history for this patient from external provider. I have reviewed and verified the staff HPI to be accurate for this encounter. There have been no associated fever, chills, flank pain, or blood in the urine. Review of Systems PHQ Score Initial Depression Screen Score: 0 SCORE ROS - Provider Constitutional: denies weight loss, denies hot flashes. Eyes: denies eye problems. Gastrointestinal: denies nausea, denies vomiting. Cardiovascular: denies chest pain or angina. Integumentary: no dryness Musculoskeletal: denies musculoskeletal symptoms. ENMT: denies otolaryngeal symptoms. Respiratory: no shortness of breath. Heme/Lymph: denies easy bleeding tendency, denies easy bruising tendency. Psychiatric: no confusion, no anxiety. Genitourinary: See HPI. Physical Exam Vitals & Measurements HR: 78(Peripheral) BP: 145/93 HT: 72 in HT: 184 cm WT: 107 kg WT: 235.4 lb BMI: 31.6 General Appearance: alert, no distress, well nourished, well developed male. Head: normocephalic . Eyes: normal orbit and globe. ENMT: normal examination of external ears. Abdomen: soft, non distended, no tenderness, no mass or organomegaly, small R inguinal hernia, palpable bowel with valsalva. Genitourinary: 3-4 cm R superior epididymal cyst, 1-2 cm cyst adjacent to it. Head of epididymis adjacent to cyst is tender, minimally firm. Bilateral testes descended, nontender, no masses. Minimally palpable varicoceles bilaterally with Valsalva Penis: normal shaft, normal glans. Skin: warm, dry, no bruising. Psychiatric: cooperative, affect appropriate for age, normal judgement, euthymic mood. Assessment/Plan 43 yo male new to our office for follow up to recent [facility] ER f/up -right groin/scrotal pain GIANCARLO 25 Portions of this record may have been created with voice recognition artificial intelligence software, specifically [employer] and or [employer]. Substitutions may have occurred due to the inherent limitations of voice recognition and artificial intelligence software. 1. Spermatocele (N43.40: Spermatocele of epididymis, unspecified) No prior vasectomy or scrotal/penile surgeries. Pt presented to [facility] ER 07/20/24 due to R testicular pain. ER note states symptoms started in April and was placed on Keflex for 2 weeks by PCP. Noticed improvement but started having low abdominal pressure 3 weeks later. Pt checked UA at home and it was suspicious for infection. Pt was treated with Macrobid for UTI in the beginning of June. Culture negative. Scrotal US 07/20/24 TB - R testis shows a 4.7 cm spermatocele. L testis minimal left hydrocele. BL varicocele. No evidence of masses or torsion. Upon personal review, R spermatocele is confirmed. CT AP wo con 07/20/24 [facility] - negative. UA today negative for infection or blood. Patient states for about a year he has been experiencing random episodes of R testicle pain . Pt states he can feel a lump on the top of his testicle. Denies abnormal colored semen. Discussed conservative management vs spermatocelectomy. Pain likely due to inflammation and possibly hernia rather than infections. Educated pt on the risks of surgery. Pt prefers to proceed with conservative management. Explained to pt that hernia pain can exacerbate testicular pain, may also have hernia pain rather than spermatocele pain. -Script sent for Meloxicam 15mg qd for 1 mos, can stop after 2 weeks if pain has resolved -Scrotal support, ice as needed, rest during acute pain events -Cont symptomatic monitoring, call if becomes bothersome enough for surgical management Follow up as needed. 2. BPH with urinary obstru (more content not included)... Normal [facility] Comment on above: Result Comment: Elec tronically Signed By: Sherley Castro MD.br\Date and Time Signed: 07/30/24 16:29 EDT\.br\Electronically Co-Signed By: Naty Edge.br\Date and Time Co-Signed: 07/30/24 15:59 EDT Marcelo 06-18-2024 L Specimen: [id number] Received: 06/19/24 Status: SUSAN Req Num: [id number] Spec Type: Surgical Subm Dr: Vanessa Jernigan DO Tissues: A Small Intestine - Biopsy/Polyp (SMALL BOWEL BX) B GASTRIC FOR HP (GASTRIC BX) Procedures: HE/4, Gross/Micro L4/2, H PYLORI Age/ Patient Sex Location Account Attending Physician Balaji Elizabeth 43/M [id number] Vanessa Jernigan DO SPEC NUM: [id number] RECD: 06/19/24 STATUS: SUSAN LORELEI NUM: [id number] EDWIN: 06/18/24-[address] [facility] [address]: Vanessa Jernigan DO ENTERED: 06/19/[address] [facility] [address]: SPEC TYPE: Surgical DEPT: S ENTERED BY: [id number] RECV BY: [id number] ORDERED: HE/4, Gross/Micro L4/2, H PYLORI ORDERED: HE/4, Gross/Micro L4/2, H PYLORI Pathological Diagnosis A, small bowel biopsy: -Small bowel mucosa with intact mucosal glandular and villous architecture without any specific features of celiac sprue, or any other specific abnormality identified B, gastric biopsy: -Antral and oxyntic mucosa with mild chronic reactive gastropathy, including few eosinophils in lamina propria of antral fragment, and occasional eosinophils in deeper stroma of the other fragment, in addition to 1 incidental degenerative gland also noted, otherwise without any other specific or significant histomorphological changes observed -H. pylori immunostain with appropriate control is also negative for identified Helicobacter organisms Clinical Information GERD globus sensation ---- Specimen: [id number] Received: 06/19/24 Status: SUSAN Dash Num: [id number] Spec Type: Surgical Subm Dr: Vanessa Jernigan DO Tissues: A Small Intestine - Biopsy/Polyp (SMALL BOWEL BX) B GASTRIC FOR HP (GASTRIC BX) Procedures: HE/4, Gross/Micro L4/2, H PYLORI ---- Patient: FenglathaailinBalaji [id number] (Continued) ---- Specimen: [id number] Received: 06/19/24 (Continued) Signed (signature on file) Ger Hamilton MD 06/22/24 1643 ---- Specimen: [id number] Received: 06/19/24 Status: SUSAN Dash Num: [id number] Spec Type: Surgical Subm Dr: Vanessa Jernigan DO Tissues: A Small Intestine - Biopsy/Polyp (SMALL BOWEL BX) B GASTRIC FOR HP (GASTRIC BX) Procedures: HE/4, Gross/Micro L4/2, H PYLORI ---- Patient: Balaji Elizabeth [id number] (Continued) ---- Specimen: [id number] Received: 06/19/24 (Continued) Gross Description Part a received in formalin with the patient's name and small bowel biopsy is a salazar portion of soft tissue measuring 0.3 cm in greatest dimension. The specimen is entirely submitted in cassette A1. Part B was received in formalin with the patient's name and gastric biopsy are 2 salazar portions of soft tissue measuring 0.2 and 0.3 cm in greatest dimension. The specimen is entirely submitted in cassette B1. Microscopic Description Microscopic examinations are performed supporting the above interpretation CPT Codes [id number] ---- ---- Specimen: [id number] Received: 06/19/24 Status: SUSAN Dash Num: [id number] Spec Type: Surgical Subm Dr: Vanessa Jernigan DO Tissues: A Small Intestine - Biopsy/Polyp (SMALL BOWEL BX) B GASTRIC FOR HP (GASTRIC BX) Procedures: HE/4, Gross/Micro L4/2, H PYLORI ---- Patient: Balaji Elizabeth [id number] (Continued) ---- Signed (signature on file) Ger Hamilton MD 06/22/24 1643 Normal [facility] US ABDOMENon 05-07-2024 US ABDOMEN US ABDOMEN : 05/07/20 24 11:30 AM CLINICAL HISTORY: rib pain on left lower quad. COMPARISON: None available. TECHNIQUE: ROUTINE FINDINGS: The left kidney measures 12.3 cm. No hydronephrosis, renal calculus or perinephric fluid is seen. The cortical medullary junction is maintained. In the area of the palpable lump on the left between ribs 5 and 6, an echogenic area is seen that measures 2.5 x 1.2 x 0.8 cm. It is similar in echogenicity to the skin. It is located approximately 3 mm from the skin. IMPRESSION: AN ECHOGENIC AREA IS SEEN BENEATH THE SKIN THAT IS SIMILAR ECHOTEXTURE IN THE AREA OF PALPABLE LUMP. THIS COULD REPRESENT FAT, SCAR.. FOR DEFINITIVE DIAGNOSIS, BIOPSY OR TISSUE SAMPLING ELECTRONICALLY SIGNED BY: Sangeetha Giraldo DO Normal Not Available NM HEPATOBILIARY SYS IMAGING W PHARMACOLOGIC AGENTon 12-26-2023 NM HEPATOBILIARY SYS IMAGING W PHARMACOLOGIC AGENT NM HEPATOBILIARY SYS IMAGING W PHARMACOLOGIC AGENT NM HEPATOBILIARY SYS IMAGING W PHARMACOLOGIC AGENT HISTORY: Right quadrant abdominal pain COMPARISON: None TECHNIQUE: Hepatobiliary scan performed after intravenous administration of 5.1 mCi Tc-99m mebrofenin. 2.04 mcg of sincalide administered intravenously after 45 minutes. Static and dynamic images obtained. Ejection fraction calculated based on generated time/activity curve. FINDINGS: Prompt homogenous uptake seen in the liver with appropriate clearance on subsequent images. Mild enterogastric reflux Visualization of radiotracer activity: Gallbladder: 20 minutes Small bowel: 25 minutes Gallbladder ejection fraction: 79% IMPRESSION: 1. Unremarkable hepatobiliary scan. 2. Gallbladder ejection fraction: 79%. Normal. 3. Mild enterogastric reflux. Approved by Resident Heber Lindquist DO on 12/26/2023 9:18 AM I, Vamsi Neff MD have personally reviewed the image(s) and agree with and/or edited the report Finalized by Vamsi Neff MD on 12/26/2023 11:28 AM Normal [facility] Office Visit (Cardiology)on 08-08-2021 Follow-up visit Diagnoses/Problems Assessed Chest pain, atypical (786.59) (R07.89) Elevated troponin level (790.6) (R77.8) Essential hypertension, benign (401.1) (I10) Personal history of COVID-19 (V12.09) (Z86.16) Class 1 obesity with body mass index (BMI) of 33.0 to 33.9 in adult (278.00,V85.33) (E66.9,Z68.33) Former smoker (V15.82) (Z87.891) quit 2000 Orders Health Maintenance Please bring all medicines, vitamins, and herbal supplements with you when you come to the office.; Status:Complete - Retrospective Authorization; Done: 08Aug2021 SocHx: Former smoker Tobacco Use Screening; Status:Complete; Done: 08Aug2021 Tobacco Use Screening; Status:Complete; Done: 08Aug2021 Patient Instructions By signing my name below, I, Pamela Arreola LPN ,[place], attest that this documentation has been prepared under the direction and in the presence of Dr. Rusty Guzmán DO. All medical record entries made by the Scribe were at my direction and personally dictated by me. I have reviewed the chart and agree that the record accurately reflects my personal performance of the history, physical exam, discussion and plan. Follow-up as needed only Chief Complaint BALAJI ELIZABETH is being seen for follow-up of a hospitalization for. Patient is a 40-year-old gentleman who returns at his own request and the request of his primary physician to further address recurrent shortness of breath associated with anxiety. Recent [place] emergency room evaluation proceeded and was noted to have minor troponin elevation per his reports we do not have these reports. He did not have any chest heaviness, pressure or discomfort. Earlier this year in October he underwent consultation and stress imaging for chest discomfort that was completely normal on the Gume protocol at over 12 minutes, greater than 14 METS of aerobic exercise activity with a normal perfusion scan and normal stress ECG. We basically recommend reassurance, counseling regarding his anxiety associated dyspnea, and discussed ultra high-sensitivity troponins with him and his this morning. Recommendations, continue antihypertensive therapies, follow-up as needed. Surgical History Problems Denied: History of Colonoscopy History of Rotator cuff repair Current Meds Medication NameInstruction Adderall 30 MG Oral TabletTAKE 1 TABLET DAILY. Atorvastatin Calcium 40 MG Oral TabletTAKE 1 TABLET AT BEDTIME. Metoprolol Tartrate 25 MG Oral TabletTAKE 0.5 TABLET Twice daily Allergies Medication Penicillins Allergy; Hives;; Recorded By: Talya Acevedo; 08/08/2021 10:40:54 AM Social History Problems Caffeine use (V49.89) (Z78.9) Diet Douglas Jimenez Consumes alcohol (V49.89) (Z72.89) 3 beers monthly Former smoker (V15.82) (Z87.891) quit 1999 No illicit drug use Vitals Vital Signs Recorded: 08Aug2021 10:41AM Heart Rate64, R Radial Txbdzrfw438, RUE, Sitting Zaxjricuj38, RUE, Sitting Height6 ft Gepwjn472 lb BMI Yuzrpzfarq65.77 kg/m2 BSA Calculated2.34 Physical Exam Constitutional: alert and in no acute distress. Neck: neck is supple, symmetric, trachea midline, no masses and no thyromegaly . Pulmonary: no increased work of breathing or signs of respiratory distress and lungs clear to auscultation. Cardiovascular: carotid pulses 2+ bilaterally with no bruit , JVP was normal, no thrills , regular rhythm, normal S1 and S2, no murmurs , pedal pulses 2+ bilaterally and no edema . Abdomen: abdomen non-tender, no masses and no hepatomegaly . Skin: skin warm and dry, normal skin turgor . Psychiatric judgment and insight is normal and oriented to person, place and time . Signatures Electronically signed by : Rusty Guzmán DO; Aug 08 2021 1:16PM EST (Author) Normal [facility] Covid-19 PCR (CVDTBH)on 06-29 SARS-CoV-2 (COVID-19) RNA GILLIAN+probe Ql (Unsp spec) Not detected Normal NOT DETECTED [facility] Comment on above: Result Comment: This test is not yet approved or cleared by the [place] FDA. When there are no FDA-approved or cleared tests available, and other criteria are met, FDA can make tests available under an emergency access mechanism called an Emergency Use Authorization (EUA). The EUA for this test is supported by the Log [employer] Operator of Health and Human Service's (HHS's) declaration that circumstances exist to justify the emergency use of in vitro diagnostics for the detection and/or diagnosis of the virus that causes COVID-19. This EUA will remain in effect (meaning this test can be used) for the duration of the COVID-19 declaration justifying emergency of IVDs, unless it is terminated or revoked by FDA (after which the test may no longer be used). When diagnostic testing is negative, the possibility of a false negative should be considered in the context of a patient's recent exposures and the presence of clinical signs and symptoms consistent with SARS-CoV-2. Performed By: #### C VDTB #### [facility] [address] [place] [address] Dr. Heath Hamilton ASYMPTOMATIC COVID-19 ANTIGE Non 07-23-2021 EUA Statement SEE BELOW Normal [facility] Comment on above: Result Comment: This test has not been FDA cleared or approved, but has been authorized by the FDA under an Emergency Use Authorization (EUA) for use by authorized laboratories certified under CLIA that meet the requirements to perform moderate or high complexity testing. This test has been authorized only for the detection of proteins from SARS-CoV-2, not for any other viruses or pathogens. The emergency use of this test is authorized for the duration of the declaration that circumstances exist justifying the authorization of emergency use of in vitro diagnostic tests for detection and/or diagnosis of Covid-19 under section 564(b)(1) of the Act, 21 U.S.C. 360bbb-3(b)(1), unless the declaration is terminated or authorization is revoked sooner. Performed By: #### C VDAGA #### [facility] [address] [place] [address] Dr. Heath Hamilton SARS-CoV-2 (COVID-19) RNA GILLIAN+probe Ql (Unsp spec) Negative Normal NEGATIVE [facility] Comment on above: Result Comment: Nega tive results are presumptive. They do not preclude infection and should not be used as the sole basis for treatment decisions. Additional confirmatory testing by a molecular method should be considered. Performed By: #### C VDAGA #### [facility] [address] [place] [address] Dr. Heath Hamilton CARDIAC RAYO 3-6on 1 CK [Catalytic activity/Vol] 144 U/L Normal 55-170 [facility] Comment on above: Performed By: #### C MREP ####[facility] [address] [place] [id number]. Heath Hamilton CK.MB [Mass/Vol] 2.37 ng/mL Normal <=2.37 [facility] Comment on above: Performed By: #### C MREP ####[facility] [address] [place] [id number]. Heath Hamilton HSTROP 60.7 pg/mL Critically high 4.0-42.2 [facility] Comment on above: Result Comment: CUT- OFF POINTS HAVE BEEN ESTABLISHED BASED ON THE FOURTH UNIVERSAL DEFINITIONS OF MYOCARDIAL INFARCTION. THE UPPER REFERENCE LIMIT (URL) OF TROPONIN, DEFINED THE 99TH PERCENTILE OF cTnI DISTRIBUTION IN A REFERENCE POPULATION, HAS BEEN CONFIRMED THE DECISION THRESHOLD FOR LA DIAGNOSIS. Performed By: #### C MREP ####[facility] [address] [place] [address]Dr. Heath Hamilton CARDIAC RAYO ADMITon 021 CK [Catalytic activity/Vol] 148 U/L Normal 55-170 [facility] Comment on above: Performed By: #### C HUMZA, BMP #### [facility] [address] [place] [address] [address] Heath Hamilton CK.MB [Mass/Vol] 2.77 ng/mL Critically high <=2.37 [facility] Comment on above: Result Comment: Test Repeated. Critical Value Verified Performed By: #### C ALEJO CHING #### [facility] [address] [place] [address] Dr. Heath Hamilton HSTROP 68.9 pg/mL Critically high 4.0-42.2 [facility] Comment on above: Result Comment: CUT- OFF POINTS HAVE BEEN ESTABLISHED BASED ON THE FOURTH UNIVERSAL DEFINITIONS OF MYOCARDIAL INFARCTION. THE UPPER REFERENCE LIMIT (URL) OF TROPONIN, DEFINED THE 99TH PERCENTILE OF cTnI DISTRIBUTION IN A REFERENCE POPULATION, HAS BEEN CONFIRMED THE DECISION THRESHOLD FOR LA DIAGNOSIS. Performed By: #### ALEJO JAUREGUI #### [facility] [address] [place] [address] Dr. Heath Hamilton CORTNEY 37.0 ng/mL Normal <=121.0 [facility] Comment on above: Performed By: #### Eric CHING, BMP #### [facility] [address] [place] [address] Dr. Heath Hamilton CBC AUTO DIFFon 07-23-2021 BASO # 0.0 103/ul Normal 0.0-0.1 [facility] Comment on above: Performed By: #### C NATY #### [facility] [address] [place] [address] Dr. Heath Hamilton Basophils/100 WBC (Bld) 0.3 % Normal 0.2-2.0 [facility] Comment on above: Performed By: #### C NATY #### [facility] [address] [place] [address] Dr. Heath Hamilton EO # 0.0 103/ul Normal 0.0-0.7 [facility] Comment on above: Performed By: #### C BC #### [facility] [address] [place] [address] Dr. Heath Hamilton Eosinophils/100 WBC (Bld) 0.5 % Critically low 0.9-7.0 [facility] Comment on above: Performed By: #### C BC #### [facility] [address] [place] [address] Dr. Heath Hamilton Erythrocyte distribution width (RBC) [Ratio] 12.5 % Normal 11.0-15.0 [facility] Comment on above: Performed By: #### C BC #### [facility] [address] [place] [address] Dr. Heath Hamilton Hematocrit (Bld) [Volume fraction] 50.0 % Normal 42.0-54.0 [facility] Comment on above: Performed By: #### C BC #### [facility] [address] [place] [address] Dr. Heath Hamilton Hemoglobin (Bld) [Mass/Vol] 17.3 g/dL Normal 14.0-18.0 [facility] Comment on above: Performed By: #### C BC #### [facility] [address] [place] [address] Dr. Heath Hamilton IG # 0.02 10e3/ul Normal 0.00-0.03 [facility] Comment on above: Performed By: #### C BC #### [facility] [address] [place] [address] Dr. Heath Hamilton IG % 0.2 % Normal 0.0-0.5 [facility] Comment on above: Performed By: #### C BC #### [facility] [address] [place] [address] Dr. Heath Hamilton LYMPH # 1.8 103/ul Normal 1.2-3.8 [facility] Comment on above: Performed By: #### C BC #### [facility] [address] [place] [address] Dr. Heath Hamilton Lymphocytes/100 WBC (Bld) 21.1 % Normal 20.5-60.0 [facility] Comment on above: Performed By: #### C BC #### [facility] [address] [place] [address] Dr. Heath Hamilton MANUAL DIFF REQ NO Normal [facility] Comment on above: Performed By: #### C BC #### [facility] [address] [place] [address] Dr. Heath Hamilton MCH (RBC) [Entitic mass] 31.2 pg Normal 25.9-34.0 [facility] Comment on above: Performed By: #### C BC #### [facility] [address] [place] [address] Dr. Heath Hamilton MCHC (RBC) [Mass/Vol] 34.6 g/dL Normal 29.9-35.2 [facility] Comment on above: Performed By: #### C BC #### [facility] [address] [place] [address] Dr. Heath Hamilton MCV (RBC) [Entitic vol] 90.3 fL Normal 80.0-94.0 [facility] Comment on above: Performed By: #### C BC #### [facility] [address] [place] [address] Dr. Heath Hamilton MONO # 0.6 103/ul Normal 0.3-0.8 [facility] Comment on above: Performed By: #### C BC #### [facility] [address] [place] [address] Dr. Heath Hamilton Monocytes/100 WBC (Bld) 6.5 % Normal 1.7-12.0 [facility] Comment on above: Performed By: #### C BC #### [facility] [address] [place] [address] Dr. Heath Hamilton NEUT # 6.1 103/ul Normal 1.4-6.5 [facility] Comment on above: Performed By: #### C BC #### [facility] [address] [place] [address] Dr. Heath Hamilton Neutrophils/100 WBC (Bld) 71.4 % Normal 43.0-75.0 [facility] Comment on above: Performed By: #### C BC #### [facility] [address] [place] [address] [address] Heath Hamilton Platelet mean volume (Bld) [Entitic vol] 10.2 fL Normal 9.5-13.5 [facility] Comment on above: Performed By: #### C BC #### [facility] [address] [place] [address] [address] Heath Hamilton PLT 196 103/ul Normal 150-450 [facility] Comment on above: Performed By: #### C BC #### [facility] [address] [place] [address] Dr. Heath Hamilton RBC 5.54 106/ul Normal 4.70-6.10 [facility] Comment on above: Performed By: #### C BC #### [facility] [address] [place] [address] Dr. Heath Hamilton WBC 8.6 103/ul Normal 4.0-11.0 [facility] Comment on above: Performed By: #### C BC #### [facility] [address] [place] [address] Dr. Heath Hamilton BASO # 0.0 103/ul Normal 0.0-0.1 [facility] Comment on above: Performed By: #### C BC ####[facility] [address] [place] [address]Dr. Heath Hamilton Basophils/100 WBC (Bld) 0.3 % Normal 0.2-2.0 [facility] Comment on above: Performed By: #### C BC ####[facility] [address] [place] [address]Dr. Heath Hamilton EO # 0.1 103/ul Normal 0.0-0.7 [facility] Comment on above: Performed By: #### C BC ####[facility] [address] [place] [address]Dr. Heath Hamilton Eosinophils/100 WBC (Bld) 2.0 % Normal 0.9-7.0 [facility] Comment on above: Performed By: #### C BC ####[facility] [address] [place] [address]Dr. Heath Hamilton Erythrocyte distribution width (RBC) [Ratio] 12.5 % Normal 11.0-15.0 [facility] Comment on above: Performed By: #### C BC ####[facility] [address] [place] [address]Dr. Heath Hamilton Hematocrit (Bld) [Volume fraction] 50.7 % Normal 42.0-54.0 [facility] Comment on above: Performed By: #### C BC ####[facility] [address] [place], [place] [address]Dr. Heath Hamilton Hemoglobin (Bld) [Mass/Vol] 17.5 g/dL Normal 14.0-18.0 [facility] Comment on above: Performed By: #### C BC ####[facility] [address] [place], [place] [address]Dr. Heath Hamilton IG # 0.02 10e3/ul Normal 0.00-0.03 [facility] Comment on above: Performed By: #### C BC ####[facility] [address] [place], [place] [address]Dr. Heath Hamilton IG % 0.3 % Normal 0.0-0.5 [facility] Comment on above: Performed By: #### C BC ####[facility] [address] [place], [place] [address]Dr. Heath Hamilton LYMPH # 1.7 103/ul Normal 1.2-3.8 [facility] Comment on above: Performed By: #### C BC ####[facility] [address] [place], [place] [address]Dr. Heath Hamilton Lymphocytes/100 WBC (Bld) 23.3 % Normal 20.5-60.0 [facility] Comment on above: Performed By: #### C BC ####[facility] [address] [place], [place] [address]Dr. Heath Hamilton MANUAL DIFF REQ NO Normal [facility] Comment on above: Performed By: #### C BC ####[facility] [address] [place] [id number]. Heath Alfonso MCH (RBC) [Entitic mass] 31.0 pg Normal 25.9-34.0 [facility] Comment on above: Performed By: #### C BC ####[facility] [address] [place] [id number]. Luisajeremy Alfonso MCHC (RBC) [Mass/Vol] 34.5 g/dL Normal 29.9-35.2 [facility] Comment on above: Performed By: #### C BC ####[facility] [address] [place] [address]Dr. Heath Hamilton MCV (RBC) [Entitic vol] 89.7 fL Normal 80.0-94.0 [facility] Comment on above: Performed By: #### C BC ####[facility] [address] [place], [place] [address]Dr. Heath Hamilton MONO # 0.6 103/ul Normal 0.3-0.8 [facility] Comment on above: Performed By: #### C BC ####[facility] [address] [place], [place] [address]Dr. Heath Hamilton Monocytes/100 WBC (Bld) 7.7 % Normal 1.7-12.0 [facility] Comment on above: Performed By: #### C BC ####[facility] [address] [place], [place] [address]Dr. Heath Hamilton NEUT # 4.7 103/ul Normal 1.4-6.5 [facility] Comment on above: Performed By: #### C BC ####[facility] [address] [place], [place] [address]DrMando Hamilton Neutrophils/100 WBC (Bld) 66.4 % Normal 43.0-75.0 [facility] Comment on above: Performed By: #### C BC ####[facility] [address] [place], [place] [address]DrMando Hamilton Platelet mean volume (Bld) [Entitic vol] 10.2 fL Normal 9.5-13.5 [facility] Comment on above: Performed By: #### C BC ####[facility] [address] [place] [address]Dr. Heath Hamilton PLT 185 103/ul Normal 150-450 [facility] Comment on above: Performed By: #### C BC ####[facility] [address] [place] [id number]. Heath Hamilton RBC 5.65 106/ul Normal 4.70-6.10 [facility] Comment on above: Performed By: #### C BC ####[facility] [address] [place] [id number]. Heath Hamilton WBC 7.1 103/ul Normal 4.0-11.0 [facility] Comment on above: Performed By: #### C BC ####[facility] [address] [place] [address]Dr. Heath Hamilton GLYCOHEMOGLOBIN A1Con 2020 ADA RECOMMENDATION ADA THERAPEUTIC TARG ET 6.0 - 7.0 ACTION SUGGESTED > 7.0 Normal [facility] Comment on above: Performed By: #### A 1C ####[facility] [address] [place] [address]Dr. Heath Hamilton Glucose [Mass/Vol] 100 mg/dL Normal [facility] Comment on above: Performed By: #### A 1C ####[facility] [address] [place] [address]Dr. Heath Hamilton HbA1c (Bld) [Mass fraction] 5.1 % Normal <=6.0 [facility] Comment on above: Performed By: #### A 1C ####[facility] [address] [place] [address]Dr. Heath Hamilton LIPID PROFILEon 07-23-2021 CHOL-HDL RATIO NORM SEE BELOW Normal [facility] Comment on above: Result Comment: 3.3 - 4.4 LOW RISK 4.4 - 7.1 AVERAGE RISK 7.1 - 11.0 MODERATE RISK >11.0 HIGH RISK Performed By: #### L IPID #### [facility] [address] [place] [address] [address] Heath Hamilton Cholesterol [Mass/Vol] 169 mg/dL Normal <=200 [facility] Comment on above: Performed By: #### L IPID #### [facility] [address] [place] [address] [address] Heath Hamilton Cholesterol in HDL [Mass/Vol] 61 mg/dL Normal [facility] Comment on above: Performed By: #### L IPID #### [facility] [address] [address] [address] Heath Hamilton Cholesterol in LDL [Mass/Vol] 91.8 mg/dL Normal [facility] Comment on above: Performed By: #### L IPID #### [facility] [address] [address] [address] Heath Hamilton Cholesterol.total/C holesterol in HDL [Mass ratio] 2.8 {ratio} Normal [facility] Comment on above: Performed By: #### L IPID #### [facility] [address] [address] [address] Heath Hamilton HDL NORMAL > or = 60 mg/dl - LO W CARDIOVASCULAR RISK <40 mg/dl - HIGH CARDIOVASCULAR RISK Normal [facility] Comment on above: Performed By: #### L IPID #### [facility] [address] [address] [address] Heath Hamilton LDL CALC NORMAL SEE BELOW Normal [facility] Comment on above: Result Comment: <100 mg/dl OPTIMAL 100 - 129 mg/dl NEAR OR ABOVE OPTIMAL 130 - 159 mg/dl BORDERLINE HIGH 160 - 189 mg/dl HIGH >190 mg/dl VERY HIGH Performed By: #### L IPID #### [facility] [address] [address] [address] Heath Hamilton Triglyceride [Mass/Vol] 81 mg/dL Normal <=150 [facility] Comment on above: Performed By: #### L IPID #### [facility] [address] [address] [address] Heath Hamilton VLDL CALC 16.2 mg/dL Normal [facility] Comment on above: Performed By: #### L IPID #### [facility] [address] [address] [address] Heath Hamilton PROF CHEM 8 (BAS METB)on Anion gap [Moles/Vol] 9.9 mmol/L Normal [facility] Comment on above: Performed By: #### B MP #### [facility] [address] [address] [address] Heath Hamilton Calcium [Mass/Vol] 9.1 mg/dL Normal 8.4-10.2 [facility] Comment on above: Performed By: #### B MP #### [facility] [address] [place] [address] Dr. Heath Hamilton Chloride [Moles/Vol] 105 mmol/L Normal 98-107 [facility] Comment on above: Performed By: #### B MP #### [facility] [address] [place] [address] Dr. Heath Hamilton CO2 [Moles/Vol] 28.2 mmol/L Normal 22.0-30.0 [facility] Comment on above: Performed By: #### B MP #### [facility] [address] [place] [address] Dr. Heath Hamilton Creatinine [Mass/Vol] 0.97 mg/dL Normal 0.66-1.25 [facility] Comment on above: Performed By: #### B MP #### [facility] [address] [place] [address] Dr. Heath Hamilton EGFR-AF YEMENI >60 Normal >=60 [facility] Comment on above: Performed By: #### B MP #### [facility] [address] [place] [address] Dr. Heath Hamilton EGFR-NON AF YEMENI >60 Normal >=60 [facility] Comment on above: Performed By: #### B MP #### [facility] [address] [place] [address] Dr. Heath Hamilton Glucose [Mass/Vol] 124 mg/dL Critically high 74-106 [facility] Comment on above: Performed By: #### B MP #### [facility] [address] [address] [address] Heath Hamilton Potassium [Moles/Vol] 4.1 mmol/L Normal 3.4-5.0 [facility] Comment on above: Performed By: #### B MP #### [facility] [address] [address] [address] Heath Hamilton Sodium [Moles/Vol] 139 mmol/L Normal 137-145 [facility] Comment on above: Performed By: #### B MP #### [facility] [address] [address] [address] Heath Hamilton Urea nitrogen [Mass/Vol] 13.0 mg/dL Normal 9.0-20.0 [facility] Comment on above: Performed By: #### B MP #### [facility] [address] [address] [address] Heath Hamilton Urea nitrogen/Creatinine [Mass ratio] 13.4 mg/mg Normal [facility] Comment on above: Performed By: #### B MP #### [facility] [address] [address] [address] Heath Hamilton Anion gap [Moles/Vol] 12.7 mmol/L Normal [facility] Comment on above: Performed By: #### C HUMZA, BMP ####[facility] [address] [address]Dr. Heath Hamilton Calcium [Mass/Vol] 9.3 mg/dL Normal 8.4-10.2 [facility] Comment on above: Performed By: #### C HUMZA, BMP ####[facility] [address] [address]DrMando Hamilton Chloride [Moles/Vol] 105 mmol/L Normal 98-107 [facility] Comment on above: Performed By: #### C HUMZA, BMP ####[facility] [address] [address]DrMando Hamilton CO2 [Moles/Vol] 25.0 mmol/L Normal 22.0-30.0 [facility] Comment on above: Performed By: #### C HUMZA, BMP ####[facility] [address] [id number]. Heath Hamilton Creatinine [Mass/Vol] 1.07 mg/dL Normal 0.66-1.25 [facility] Comment on above: Performed By: #### Eric CHING, BMP ####[facility] [address] [place], [place] [address]Vd. Heath Hamilton EGFR-AF YEMENI >60 Normal >=60 [facility] Comment on above: Performed By: #### C HUMZA, BMP ####[facility] [address] [id number]. Heath Hamilton EGFR-NON AF YEMENI >60 Normal >=60 [facility] Comment on above: Performed By: #### C HUMZA, BMP ####[facility] [address] [id number]. Heath Hamilton Glucose [Mass/Vol] 138 mg/dL Critically high 74-106 [facility] Comment on above: Performed By: #### Eric CHING, BMP ####[facility] [address] [id number]. Heath Hamilton Potassium [Moles/Vol] 3.7 mmol/L Normal 3.4-5.0 [facility] Comment on above: Performed By: #### Eric CHING, BMP ####[facility] [address] [id number]. Heath Hamilton Sodium [Moles/Vol] 139 mmol/L Normal 137-145 [facility] Comment on above: Performed By: #### Eric CHING, BMP ####[facility] [address] [id number]. Heath Hamilton Urea nitrogen [Mass/Vol] 15.0 mg/dL Normal 9.0-20.0 [facility] Comment on above: Performed By: #### Eric CHING, BMP ####[facility] [address] [id number]. Heath Hamilton Urea nitrogen/Creatinine [Mass ratio] 14.0 mg/mg Normal [facility] Comment on above: Performed By: #### C MADM, BMP ####[facility] [address] [address]Dr. Heath Hamilton PROTIMEon 07-23-2021 INR Coag (PPP) [Relative time] 1.04 {INR} Normal [facility] Comment on above: Performed By: #### P TT, PT #### [facility] [address] [address] [address] Heath Hamilton INR GUIDELINES SEE BELOW Normal [facility] Comment on above: Result Comment: ALICE RED INR: 2.0 - 3.0 CONDITIONS NOT LISTED BELOW 2.5 - 3.5 FOR PROSTHETIC HEART VALVE REPLACEMENT 2.5 - 3.5 RECURRENT THROMBOSIS Performed By: #### P TT, PT #### [facility] [address] [address] [address] Heath Hamilton PT Coag (PPP) [Time] 11.2 s Normal 9.0-11.6 [facility] Comment on above: Performed By: #### P TT, PT #### [facility] [address] [address] [address] Heath Hamilton PTTon 07-23-2021 aPTT Coag (Bld) [Time] 24.6 s Normal 22.3-36.2 [facility] Comment on above: Performed By: #### P TT, PT #### [facility] [address] [place] [address] Dr. Heath Hamilton TROPONIN, HIGH SENSITIVITYon 07-23-2021 HSTROP 56.2 pg/mL Critically high 4.0-42.2 [facility] Comment on above: Result Comment: CUT- OFF POINTS HAVE BEEN ESTABLISHED BASED ON THE FOURTH UNIVERSAL DEFINITIONS OF MYOCARDIAL INFARCTION. THE UPPER REFERENCE LIMIT (URL) OF TROPONIN, DEFINED THE 99TH PERCENTILE OF cTnI DISTRIBUTION IN A REFERENCE POPULATION, HAS BEEN CONFIRMED THE DECISION THRESHOLD FOR LA DIAGNOSIS. Performed By: #### H STROPN #### [facility] [address] [place] [address] Dr. Heath Hamilton HSTROP 55.6 pg/mL Critically high 4.0-42.2 [facility] Comment on above: Result Comment: CUT- OFF POINTS HAVE BEEN ESTABLISHED BASED ON THE FOURTH UNIVERSAL DEFINITIONS OF MYOCARDIAL INFARCTION. THE UPPER REFERENCE LIMIT (URL) OF TROPONIN, DEFINED THE 99TH PERCENTILE OF cTnI DISTRIBUTION IN A REFERENCE POPULATION, HAS BEEN CONFIRMED THE DECISION THRESHOLD FOR LA DIAGNOSIS. Performed By: #### H [facility] ####[facility] [address] [place], [place] [address]YgMando Hamilton [facility] CARDIAC STRESS/REST (CORTNEY CARDIAL PERFUSION/MIBI)on 11-30-2020 [facility] CARDIAC STRESS/REST (MYOCARDIAL PERFUSION/MIBI) Patient Name: BALAJI ELIZABETH STUDY: MYOCARDIAL PERFUSION STRESS TEST WITH EXERCISE Performing facility: [facility], \[address], [address], \[place] [id number] [facility] Provider: Mansi Guzámn DO, [facility] PCP: Dr. Elida Ying Supervising provider: Crystal Casanova MD, [facility] INDICATION: Chest Pain; HISTORY: Gender: M; Age: 40 y/o ; Height: 0 cm; Weight: 005.9374347 kg. Chest Pain; Quit smoking unknown years ago. COMPARISON: No comparison. ACCESSION NUMBER(S): [id number]; [id number]; [id number] ORDERING CLINICIAN: RUSTY GUZMÁN TECHNIQUE: TWO DAY protocol. Stress injection: Date:11/30/2020, 35.4 mCi of Myoview IV at peak exercise. Rest injection: Date: 12/01/2020, 33.7 mCi of Myoview IV at rest. Imaging was performed by gated tomographic technique. STRESS TEST DATA: Resting heart rate was 80 BPM. Resting blood pressure was 140/96 mmHg. The patient exercised using a exercise protocol. 12:40 minutes exercised. 85 % of MPHR achieved for age. 14.6 METS achieved. Maximum heart rate was 153 BPM. Maximum blood pressure was 170/110 mmHg. DTS 12. TEST TERMINATED DUE TO: Fatigue FINDINGS: STRESS TEST RESULTS: Resting electrocardiogram revealed normal sinus rhythm with incomplete right bundle branch block. The patient had no significant ECG changes with maximal stress. The patient did not have chest pains/symptoms during the procedure. There was a normal recovery phase. There were no significant dysrhythmias. IMAGING RESULTS: Image quality was good. Rest and stress tomographic images were reviewed and revealed normal perfusion without evidence of ischemia, myocardial infarction, or left ventricular dilatation with stress. Overall left ventricular systolic function appeared to be normal without regional wall motion abnormalities. LV ejection fraction was 62 %. TID is 1.11 and is normal. There was no evidence of attenuation artifact. IMPRESSION: Normal exercise Myoview cardiac perfusion stress test. No evidence of ischemia or myocardial infarction by perfusion imaging. Normal left ventricular systolic function, ejection fraction 62%. No exercise provoked significant ischemic ECG changes or chest pain symptoms. No previous studies are available for comparison. Electronically signed by: CRYSTAL CASANOVA MD Normal [facility] CARDIAC STRESS/REST INJE CTIONon 11-30-2020 [facility] CARDIAC STRESS/REST INJECTION Patient Name: BALAJI ELIZABETH STUDY: MYOCARDIAL PERFUSION STRESS TEST WITH EXERCISE Performing facility: [facility], [address], [address], \[address] Provider: Mansi Guzmán DO, [facility] PCP: Dr. Elida Ying Supervising provider: Crystal Casanova MD, [facility] INDICATION: Chest Pain; HISTORY: Gender: M; Age: 40 y/o ; Height: 0 cm; Weight: 250.5814215 kg. Chest Pain; Quit smoking unknown years ago. COMPARISON: No comparison. ACCESSION NUMBER(S): [id number]; [id number]; [id number] ORDERING CLINICIAN: RUSTY GUZMÁN TECHNIQUE: TWO DAY protocol. Stress injection: Date:11/30/2020, 35.4 mCi of Myoview IV at peak exercise. Rest injection: Date: 12/01/2020, 33.7 mCi of Myoview IV at rest. Imaging was performed by gated tomographic technique. STRESS TEST DATA: Resting heart rate was 80 BPM. Resting blood pressure was 140/96 mmHg. The patient exercised using a exercise protocol. 12:40 minutes exercised. 85 % of MPHR achieved for age. 14.6 METS achieved. Maximum heart rate was 153 BPM. Maximum blood pressure was 170/110 mmHg. DTS 12. TEST TERMINATED DUE TO: Fatigue FINDINGS: STRESS TEST RESULTS: Resting electrocardiogram revealed normal sinus rhythm with incomplete right bundle branch block. The patient had no significant ECG changes with maximal stress. The patient did not have chest pains/symptoms during the procedure. There was a normal recovery phase. There were no significant dysrhythmias. IMAGING RESULTS: Image quality was good. Rest and stress tomographic images were reviewed and revealed normal perfusion without evidence of ischemia, myocardial infarction, or left ventricular dilatation with stress. Overall left ventricular systolic function appeared to be normal without regional wall motion abnormalities. LV ejection fraction was 62 %. TID is 1.11 and is normal. There was no evidence of attenuation artifact. IMPRESSION: Normal exercise Myoview cardiac perfusion stress test. No evidence of ischemia or myocardial infarction by perfusion imaging. Normal left ventricular systolic function, ejection fraction 62%. No exercise provoked significant ischemic ECG changes or chest pain symptoms. No previous studies are available for comparison. Electronically signed by: CRYSTAL CASANOVA MD [facility] PART 2 STRESS OR REST (N O CHARGE)on 11-30-2020 [facility] PART 2 STRESS OR REST (NO CHARGE) Patient Name: BALAJI ELIZABETH STUDY: MYOCARDIAL PERFUSION STRESS TEST WITH EXERCISE Performing facility: [facility], [address], [address], \[address] Provider: Mansi Guzmán DO, [facility] PCP: Dr. Elida Ying Supervising provider: Crystal Casanova MD, [facility] INDICATION: Chest Pain; HISTORY: Gender: M; Age: 40 y/o ; Height: 0 cm; Weight: 857.3925784 kg. Chest Pain; Quit smoking unknown years ago. COMPARISON: No comparison. ACCESSION NUMBER(S): [id number]; [id number]; [id number] ORDERING CLINICIAN: RUSTY GUZMÁN TECHNIQUE: TWO DAY protocol. Stress injection: Date:11/30/2020, 35.4 mCi of Myoview IV at peak exercise. Rest injection: Date: 12/01/2020, 33.7 mCi of Myoview IV at rest. Imaging was performed by gated tomographic technique. STRESS TEST DATA: Resting heart rate was 80 BPM. Resting blood pressure was 140/96 mmHg. The patient exercised using a exercise protocol. 12:40 minutes exercised. 85 % of MPHR achieved for age. 14.6 METS achieved. Maximum heart rate was 153 BPM. Maximum blood pressure was 170/110 mmHg. DTS 12. TEST TERMINATED DUE TO: Fatigue FINDINGS: STRESS TEST RESULTS: Resting electrocardiogram revealed normal sinus rhythm with incomplete right bundle branch block. The patient had no significant ECG changes with maximal stress. The patient did not have chest pains/symptoms during the procedure. There was a normal recovery phase. There were no significant dysrhythmias. IMAGING RESULTS: Image quality was good. Rest and stress tomographic images were reviewed and revealed normal perfusion without evidence of ischemia, myocardial infarction, or left ventricular dilatation with stress. Overall left ventricular systolic function appeared to be normal without regional wall motion abnormalities. LV ejection fraction was 62 %. TID is 1.11 and is normal. There was no evidence of attenuation artifact. IMPRESSION: Normal exercise Myoview cardiac perfusion stress test. No evidence of ischemia or myocardial infarction by perfusion imaging. Normal left ventricular systolic function, ejection fraction 62%. No exercise provoked significant ischemic ECG changes or chest pain symptoms. No previous studies are available for comparison. Electronically signed by: CRYSTAL CASANOVA MD [facility] Vital Signs Date Time Vital Sign Value Performing Clinician Facility 09-22-2024 13:37-0500 Body height 182.9 cm Georgia Ying MD [facility] 09-22-2024 13:37-0500 Body mass index (BMI) [Ratio] 32.14 kg/m2 Georgia Ying MD Work Phone: [facility] 09-22-2024 13:37-0500 Body weight 107.5 kg Georgia Ying MD Work Phone: [facility] 09-22-2024 13:37-0500 Diastolic blood pressure 88 mm[Hg] Georgia Ying MD Work Phone: [facility] 09-22-2024 13:37-0500 Heart rate 75 /min Georgia Ying MD Work Phone: [facility] 09-22-2024 13:37-0500 SaO2% (BldA) [Mass fraction] 96 % Georgia Ying MD Work Phone: [facility] 09-22-2024 13:37-0500 Systolic blood pressure 124 mm[Hg] Georgia Ying MD Work Phone: [facility] 09-10-2024 09:04-0500 Body height 182.9 cm Thelma Medinai F[employer]ICATION DEPARTMENT SUPERVISOR Work Phone: [facility] 09-10-2024 09:04-0500 Body mass index (BMI) [Ratio] 32.55 kg/m2 Thelma Parmariani [employer]ICATION DEPARTMENT SUPERVISOR Work Phone: [facility] 09-10-2024 09:04-0500 Body weight 108.86 kg Thelma Medinai FABRICATION DEPARTMENT SUPERVISOR Work Phone: [facility] 09-10-2024 09:04-0500 Diastolic blood pressure 74 mm[Hg] Thelma Parmariani FABRICATION DEPARTMENT SUPERVISOR Work Phone: [facility] 09-10-2024 09:04-0500 Systolic blood pressure 132 mm[Hg] Thelma Parmariani FABRICATION DEPARTMENT SUPERVISOR Work Phone: [facility] 07-30-2024 15:01-0400 Blood Pressure Location Sherley Lue [facility] 07-30-2024 15:01-0400 Diastolic blood pressure 93 mm[Hg] Hserley Lue [facility] 07-30-2024 15:01-0400 Heart rate 78 /min Sherley Lue [facility] 07-30-2024 15:01-0400 Systolic blood pressure 145 mm[Hg] Sherley Lue [facility] 06-18-2024 10:55-0400 Diastolic blood pressure 76 mm[Hg] MD Georgia Ying Work Phone: [facility] 06-18-2024 10:55-0400 Heart rate 69 /min MD Georgia Ying Work Phone: [facility] 06-18-2024 10:55-0400 Respiratory rate 14 /min MD Georgia Ying Work Phone: [facility] 06-18-2024 10:55-0400 SaO2% (BldA) [Mass fraction] 96 % MD Georgia Ying Work Phone: [facility] 06-18-2024 10:55-0400 Systolic blood pressure 124 mm[Hg] MD Georgia Ying Work Phone: [facility] 06-18-2024 09:09-0400 Body height 182.88 cm MD Georgia Ying Work Phone: [facility] 06-18-2024 09:09-0400 Body temperature 98.3 [degF] MD Georgia Ying Work Phone: [facility] 06-18-2024 09:09-0400 Body weight 104.3 kg MD Georgia Ying Work Phone: [facility] 08-09-2023 17:25-0400 Body height 180.34 cm Shelby Arreola Other [facility] Other 08-09-2023 17:25-0400 Body mass index (BMI) [Ratio] 32.21 kg/m2 Shelby Arreola Other [facility] Other 08-09-2023 17:25-0400 Body temperature 97.8 [degF] Shelby Arreola Other [facility] Other 08-09-2023 17:25-0400 Body weight 104.78 kg Shelby Arreola Other [facility] Other 08-09-2023 17:25-0400 Diastolic blood pressure 98 mm[Hg] Shelby Arreola Other [facility] Other 08-09-2023 17:25-0400 Respiratory rate 17 /min Shelby Arreola Other [facility] Other 08-09-2023 17:25-0400 SaO2% (BldA) [Mass fraction] 98 % Shelby Arreola Other [facility] Other 08-09-2023 17:25-0400 Systolic blood pressure 130 mm[Hg] Shelby Brysonmond Other [facility] Other 08-08-2021 10:41-0400 Body height 182.88 cm [employer] [place] Work Phone: [facility] [facility] DO Work Phone: 08-08-2021 10:41-0400 Body mass index (BMI) [Ratio] 33.77 kg/m2 Rugen M Deonna Work Phone: [facility] [facility] DO Work Phone: 08-08-2021 10:41-0400 Body surface area Derived from formula 2.34 m2 [employer] [place] Work Phone: [facility] 250 DO Work Phone: 08-08-2021 10:41-0400 Body weight 112.95 kg Rugen M [place] Work Phone: [facility] 250 DO Work Phone: 08-08-2021 10:41-0400 Diastolic blood pressure 78 mm[Hg] Rugen M [place] Work Phone: [facility] 250 DO Work Phone: 08-08-2021 10:41-0400 Heart rate 64 /min Rugen M Deonna Work Phone: [facility] [facility] DO Work Phone: 08-08-2021 10:41-0400 Systolic blood pressure 116 mm[Hg] Rugen M Deonna Work Phone: [facility] [facility] DO Work Phone: Encounters Encounter Date Encounter Type Care Provider Facility Start: 12-01-2024 End: 12-01-2024 Refill Thelma Frazier FABRICATION DEPARTMENT SUPERVISOR Work Phone: [facility] Comment on above: ADD (attention defic it disorder) without hyperactivity Start: 2024 End: 2024 Refill Thelma Frazier FABRICATION DEPARTMENT SUPERVISOR Work Phone: [facility] Comment on above: ADD (attention defic it disorder) without hyperactivity Start: 10-13-2024 End: 10-13-2024 Telephone encounter Georgia Ying MD Work Phone: [facility] Start: 10-01-2024 End: 10-05-2024 Refill Calvin Fernandes MD Work Phone: [facility] Comment on above: ADD (attention defic it disorder) without hyperactivity Start: 09-22-2024 End: 09-22-2024 Bamboo flowsheet Georgia Ying MD Work Phone: [facility] Start: 09-22-2024 End: 09-22-2024 Bamboo flowsheet Georgia Ying MD Work Phone: [facility] Start: 09-22-2024 End: 09-22-2024 ambulatory [place] YING Not Available Start: 09-22-2024 End: 09-22-2024 Patient encounter status Georgia Ying MD Work Phone: [facility] Start: 09-22-2024 End: 09-22-2024 Periodic preventive med est patient 40-64yrs Georgia Ying MD Work Phone: [facility] Comment on above: ADD (attention defic it disorder) without hyperactivity (Primary Dx); Gastroesophageal reflux disease without esophagitis; Abnormal glucose tolerance test; Benign essential hypertension (CMS/HCC); Nocturia; Well adult exam; Screening for lipid disorders Start: 09-10-2024 End: 09-10-2024 Bamboo flowsheet Thelma Frazier FABRICATION DEPARTMENT SUPERVISOR Work Phone: [facility] Start: 09-10-2024 End: 09-10-2024 Bamboo flowsheet Thelma Darin Parmarashley FABRICATION DEPARTMENT SUPERVISOR Work Phone: [facility] Start: 09-10-2024 End: 09-10-2024 Office outpatient visit 25 minutes Thelma Frazier FABRICATION DEPARTMENT SUPERVISOR Work Phone: [facility] 210 Comment on above: ADD (attention defic it disorder) without hyperactivity (Primary Dx); Neck pain; Disturbance of skin sensation; Cervical paraspinal muscle spasm Start: 09-10-2024 End: 09-10-2024 ambulatory THELMA FRAZIER Not Available Start: 08-31-2024 End: 08-31-2024 Refill Thelma Frazier FABRICATION DEPARTMENT SUPERVISOR Work Phone: [facility] Comment on above: ADD (attention defic it disorder) without hyperactivity Start: 07-31-2024 End: 08-03-2024 Refill Thelma Frazier FABRICATION DEPARTMENT SUPERVISOR Work Phone: [facility] Comment on above: ADD (attention defic it disorder) without hyperactivity Start: 07-30-2024 End: 07-30-2024 ambulatory Sherley Castro Facility:[facility] Start: 07-30-2024 End: 07-30-2024 Patient encounter procedure Sherley Castro [facility] Start: 07-22-2024 ambulatory Sherley Lunoe Facility:[facility] Start: 07-02-2024 End: 07-03-2024 Refill Calvin Fernandes MD Work Phone: [facility] Comment on above: ADD (attention defic it disorder) without hyperactivity Start: 06-18-2024 Non-patient / Non-visit MD Mercy Ying Work Phone: [facility] Gastroenterology Work Phone: Start: 06-18-2024 End: 06-18-2024 Admission to same day surgery center MD Georgia Ying Work Phone: [facility] Work Phone: Start: 06-18-2024 End: 06-18-2024 ambulatory MD Georgia Ying Work Phone: [facility] Work Phone: Start: 06-04-2024 End: 06-04-2024 ambulatory THELMA Darin GRAZIANI Not Available Start: 05-18-2024 End: 05-18-2024 ambulatory GEORGIA Webster DEONNA Not Available Start: 05-11-2024 End: 05-11-2024 ambulatory ONEYDA Webster HEMMER Not Available Start: 05-07-2024 End: 05-07-2024 ambulatory ONEYDA Webster HEMMER Not Available Start: 04-10-2024 End: 04-10-2024 ambulatory ONEYDA Webster HEMMER Not Available Start: 03-05-2024 End: 03-05-2024 ambulatory THELMA Darin GRAZIANI Not Available Start: 12-26-2023 End: 12-27-2023 [facility] Start: 12-13-2023 End: 12-13-2023 ambulatory ONEYDA Webster HEMMER Not Available Start: 10-16-2023 End: 10-16-2023 ambulatory THELMA Darin GRAZIANI Not Available Start: 08-09-2023 End: 08-09-2023 ambulatory Shelby Arreola Other [employer] Other Start: 08-09-2023 Office outpatient ne w 10 minutes Shelby Arreola [facility] Иван Start: 08-06-2023 End: 12-13-2023 Patient encounter status Calvin Fernandes MD Work Phone: [facility] Start: 01-22-2022 End: 01-22-2022 ambulatory ORLIN PAVON Facility: Start: 08-08-2021 Office outpatient vi sit 25 minutes Georgia Ying Work Phone: [facility] 250 DO Work Phone: Start: 08-08-2021 Patient encounter procedure Georgia Harta Work Phone: [facility] 250 DO Work Phone: Start: 07-23-2021 End: 07-23-2021 ambulatory [facility] Facility: Cardiovascular stres s test abnormal Rugshweta Webster Barrington Work Phone: [facility] 250 DO Work Phone: Procedures Date Procedure Procedure Detail Performing Clinician Start: 06-18-2024 Esophagogastroduodenoscopy MD Georgia Ying Work Phone: Repair of musculoten dinous cuff of shoulder Rugshweta M Deonna Work Phone: Repair of musculoten dinous cuff of shoulder Sherley Castro NEGATED: Highlighted row has not occurred! Colonoscopy Rugshweta Harta Work Phone: Plan of Treatment Date Care Activity Detail Author Start: 04-26-2025 Influenza vaccination Influenza Vacc ine (#1) [facility] Comment on above: Postponed from 06/28 (Patient Refused) Start: 11-26-2024 End: 11-26-2024 Clinical Support 11/26/2024 9:15 AM EST Clinical Support [facility] [address] [address] Thelma Frazier, FABRICATION DEPARTMENT SUPERVISOR [address] [facility] [address] [address] [facility] Start: 10-01-2024 End: 10-01-2024 Patient encounter procedure 10/01/2024 8:00 AM EST Procedure Visit [facility] [address] [address] [facility] Start: 09-22-2024 End: 09-22-2025 CBC W Auto Differential panel - Blood CBC and differential Lab Routine Gastroesophageal reflux disease without esophagitis Benign essential hypertension (CMS/HCC) Well adult exam Expected: 09/22/2024 (Approximate), Expires: 09/22/2025 [facility] Work Phone: Comment on above: Expected: 09/22/2024 (Approximate), Expires: 09/22/2025 Start: 09-22-2024 End: 09-22-2025 Comprehensive metabolic 2000 panel - Serum or Plasma Comprehensive metabolic panel Lab Routine Abnormal glucose tolerance test Benign essential hypertension (CMS/HCC) Well adult exam Expected: 09/22/2024 (Approximate), Expires: 09/22/2025 [facility] Comment on above: Expected: 09/22/2024 (Approximate), Expires: 09/22/2025 Start: 09-22-2024 End: 09-22-2025 Lipid 1996 panel - Serum or Plasma Lipid panel Lab Routine Well adult exam Screening for lipid disorders Expected: 09/22/2024 (Approximate), Expires: 09/22/2025 [facility] Comment on above: Expected: 09/22/2024 (Approximate), Expires: 09/22/2025 Start: 09-22-2024 End: 09-22-2025 Prostate specific Ag [Mass/volume] in Serum or Plasma PSA Lab Routine Nocturia Well adult exam Expected: 09/22/2024 (Approximate), Expires: 09/22/2025 [facility] Comment on above: Expected: 09/22/2024 (Approximate), Expires: 09/22/2025 Start: 09-22-2024 End: 09-22-2024 Patient encounter procedure 09/22/2024 11:15 AM EST Office Visit [facility] [address] [email or web address] [address] [place] [id number] Georgia Ying MD [address] [facility] [address] [place] [address] [facility] Start: 09-10-2024 End: 09-10-2025 EMG 2 Extremities EMG 2 Extremities Neurology Routine Neck pain Disturbance of skin sensation Cervical paraspinal muscle spasm Expected: 09/10/2024 (Approximate), Expires: 09/10/2025 [facility] Work Phone: Comment on above: Expected: 09/10/2024 (Approximate), Expires: 09/10/2025 Start: 09-10-2024 End: 09-10-2024 Patient encounter procedure 09/10/2024 9:00 AM EST Office Visit [facility] [address] [address] [id number] Thelma Frazier, FABRICATION DEPARTMENT SUPERVISOR [address], [place] [address] [facility] [address] Start: 06-28-2024 Influenza vaccination Influenza Vacc ine (#1) [facility] Start: 06-18-2024 [facility] Start: 1980 Screening for malign ant neoplasm of colon [facility] Patient Education Gastritis (DC) Hiatal Hernia (DC) Know your Meds [facility] Work Phone: Payers Date Payer Category Payer Self-pay [id number] 2014 Private Health Insurance [id number] 2004 Managed Care HMO (unspecified) [id number] 1979 Unknown [id number] 2.16.84 [id number] 1979 Unknown [id number] 2.16.84 [id number] 1979 Unknown [id number] [id number] 1979 Unknown [id number] 2.16.840.1.436315.3.579.2.1286 1979 Unknown [id number] [id number] 1979 Unknown [id number] 2.16.840.1.649648.3.579.2.9 1979 Unknown [id number] 2.16.840.1.624325.3.579.2.9 1979 Unknown [id number] 2.16.840.1.094062.3.579.2.1258 1979 Unknown [id number] 2.16.840.1.133708.3.579.2.9 1979 Unknown [id number] 2.16.840.1.442213.3.579.2.1258 1979 Unknown [id number] 2.16.840.1.943863.3.579.2.9 1979 Unknown [id number] 2.16.840.1.199718.3.579.2.1258 1979 Unknown [id number] 2.16.840.1.247017.3.579.2.9 1979 Unknown [id number] 2.16.840.1.329151.3.579.2.1258 1979 Unknown [id number] 2.16.840 .[id number] 1959 Private Health Insurance [id number] Unknown [employer] Unknown [id number] Social History Date Type Detail Facility Start: 05-17-2024 End: 06-04-2024 Consumes alcohol Consumes alcohol [place] [address] DO Work Phone: Comment on above: 3 beers monthly; Diet Mt Dew; quit 1999; Start: 05-13-2023 End: 05-17-2024 Sex Assigned At [facility] Start: 04-10-2024 End: 06-18-2024 Tobacco smoking status NHIS Ex-smoker (finding) [facility] Start: 1980 Sex Assigned At Male [facility] End: 10-28-2002 History of tobacco use Current smoker [facility] End: 10-28-2002 History of tobacco use Cigarette Smoker [facility] Start: 04-10-2024 Tobacco use and exposure Former smokeless tobacco user [facility] End: 04-30-2023 History of tobacco use Snuff User [facility] Start: 06-04-2024 End: 09-22-2024 Alcoholic beverage intake Ex-drinker (finding) [facility] How often do you nee d to have someone help you when you read instructions, pamphlets, or other written material from your doctor or pharmacy [SILS] Never [facility] Within the last year , have you been afraid of your partner or ex-partner? No [facility] Are you now , , , , never or living with a partner? [facility] How often to you hav e a drink containing alcohol? Monthly or less [facility] How many standard drinks containing alcohol do you have on a typical day? 1 or 2 [facility] How often do you hav e 6 or more drinks on 1 occasion? Never [facility] Do you feel stress - tense, restless, nervous, or anxious, or unable to sleep at night because your mind is troubled all the time - these days [OSQ] Not at all [facility] (I/We) worried wheth er (my/our) food would run out before (I/we) got money to buy more. Never true [facility] Start: 12-13-2023 Alcohol Comment ETOH once a mo nth. Caffeine intake: coffee [facility] Start: 04-13-2023 Gender identity Identifies as male gender (finding) [facility] Start: 05-13-2023 Sexual orientation Heterosexual (fin ding) [facility] Goals Date Patient Goal Desired Activity /State Functional Status Date Assessment Result Facility 07-30-2024 Functional Status N/A [facility] Clinical Notes 07-23-2021 to 12-01-2024 Telephone Encounter - Thelma Frazier NP - 12/01/2024 7:04 PM ESTTelephone Encounter - Thelma Frazier NP - 12/01/2024 7:04 PM Kaylee Ying MD - 09/22/2024 4:31 PM EST Note Date & Type Note Facility 12-01-2024 Telephone encounter Note Sent. OARRS reviewed. [facility] 12-01-2024 Miscellaneous Notes Sent. OARRS reviewed. documented in this encounter [facility] 2024 Telephone encounter Note OARRS reviewed. [facility] 2024 Miscellaneous Notes OARRS reviewed. documented in this encounter [facility] 10-13-2024 Telephone encounter Note Question about metallic taste Could be infection, BP med too much zinc or iron and B12 deficiency, try that if NB needs some blood work [facility] 10-13-2024 Miscellaneous Notes Question about metallic taste Could be infection, BP med too much zinc or iron and B12 deficiency, try that if NB needs some blood work documented in this encounter [facility] 10-05-2024 Telephone encounter Note Sent. OARRS reviewed. [facility] 10-05-2024 Miscellaneous Notes Sent. OARRS reviewed. Due 10/01/2024 documented in this encounter [facility] 10-05-2024 Telephone encounter Note Due 10/01/2024 [facility] 09-22-2024 History of Presen t illness Narrative Associated Problem(s): ADD (attention deficit disorder) without hyperactivity Patient's Current ADD is controlled with current dose No evidence of overuse or abuse Weight has been stable Encouraged Medication Holidays PDMP reviewed F/U routinely every 3 months Associated Problem(s): Well adult exam Modest Alcohol consumption No Tobacco Seat Belt use Exercise Regularly No Text Drive Social Accountability Associated Problem(s): Benign essential hypertension (CMS/HCC) Our specific goals, for your hypertension, is to keep your blood pressure less than 140/90, and the importance of weight control. We made recommendations on how to control your blood pressure, and minimize your risk of these copmplications. We also discussed your current barriers to a healthy living and importance of healthy diet and exercise. Prior to your visit today we have reviewed your chart and formed a plan to assist with providing you the best possible care. We reviewed the possible complications of hypertension including, stroke, heart failure and kidney impairment. In addition, we discussed your medications, the importance of taking them as prescribed. DASH diet handouts Associated Problem(s): Gastroesophageal reflux disease without esophagitis Meds refilled and are effective Images from the original note were not included. Subjective Patient ID: Omar Elizabeth is a 43 y.o. male who presents for Annual Exam. Pt is here for annual visit Pt is wanting a script for nexium as he has been getting this otc Patient does complain of numbness to b/L ulnar distribution to UE. He will be getting an EMG by Neurology Occ Anxiety but overall controlled Current Outpatient Medications on File Prior to Visit Medication Sig Dispense Refill amphetamine-dextroamphetamine XR (Adderall XR) 30 MG 24 hr capsule Take 2 capsules (60 mg) by mouth in the morning. Do not crush or chew.. 60 capsule 0 atenolol (Tenormin) 50 MG tablet TAKE 1 TABLET DAILY 100 tablet 3 busPIRone (Buspar) 15 MG tablet Take 1 tablet (15 mg) by mouth in the morning and 1 tablet (15 mg) before bedtime. 180 tablet 3 HYDROcodone-acetaminophen (Keldron) 5-325 MG tablet 1 tab orally every 8 hours As Needed for pain meloxicam (Mobic) 15 MG tablet Take 15 mg by mouth [DISCONTINUED] atenolol (Tenormin) 50 MG tablet TAKE 1 TABLET DAILY 90 tablet 3 [DISCONTINUED] esomeprazole (NexIUM) [address] capsule Take 1 capsule (40 mg) by mouth in the morning for 14 days. Take before meals. Do not open capsule.. 14 capsule 0 No current facility-administered medications on file prior to visit. I have reviewed and reconciled the history and medication list with the patient today. Allergies Allergen Reactions Penicillins Anaphylaxis and Unknown Ciprofloxacin Other Duloxetine Hcl Unknown Penicillin G Social History Tobacco Use Smoking status: Former Current packs/day: 0.00 Types: Cigarettes Quit date: 10/28/2002 Years since quittin.9 Smokeless tobacco: Former Types: Snuff Quit date: 04/30/2023 Substance Use Topics Alcohol use: Not Currently Alcohol/week: 6.0 standard drinks of alcohol Types: 6 Standard drinks or equivalent per week Comment: ETOH once a month. Caffeine intake: coffee Drug use: Never Family History Problem Relation Name Age of Onset Hypertension Mother Sherley Cancer Mother Sherley Anxiety disorder Mother Sherley Hyperlipidemia Father Ty Hypertension Father Ty Heart disease Father Ty Past Medical History: Diagnosis Date ADHD (CMS/HCC) COVID-19 11/06/2020 unvaccinated H/O CT scan of abdomen 12/19/2018 prominent bladder wall. No kidney stone. Headaches, cluster History of being hospitalized 11/06/2020 [facility] for NSTEMI Normal Echo, Positive Covid. Troponin 1 positive, Troponin 2 and 3 normal History of echocardiogram 11/07/2020 Echo shows normal EF 60-65% Hypertension ([facility]) NSTEMI (non-ST elevated myocardial infarction) ([facility]) 11/06/2020 S/P rotator cuff repair right Sleep apnea 2009 Past Surgical History: Procedure Laterality Date ARTHROCENTESIS, RIGHT SHOULDER ROTATOR CUFF REPAIR Right 2011 arthroscopy TENDON injection tendon origin/insertion WISDOM TOOTH EXTRACTION 2001 Visit Vitals BP 124/88 Pulse 75 Ht 6' Wt 237 lb SpO2 96% BMI 32.14 kg/m Smoking Status Former BSA 2.34 m Review of Systems Constitutional: Negative for chills and fever. Respiratory: Negative for shortness of breath. Cardiovascular: Negative for chest pain. Gastrointestinal: Negative for constipation, diarrhea, nausea and vomiting. Occ Reflux, but Nexium helps Musculoskeletal: Negative for back pain and gait problem. Neurological: Positive for numbness. Negative for dizziness and facial asymmetry. Objective Physical Exam Vitals and nursing note reviewed. Constitutional: General: He is not in acute distress. Appearance: Normal appearance. He is obese. He is not ill-appearing. HENT: Head: Normocephalic. Right Ear: Tympanic membrane, ear canal and external ear normal. Left Ear: Tympanic membrane normal. Nose: Nose normal. Mouth/Throat: Mouth: Mucous membranes are moist. Eyes: Extraocular Movements: Extraocular movements intact. Conjunctiva/sclera: Conjunctivae normal. Pupils: Pupils are equal, round, and reactive to light. Neck: Vascular: No carotid bruit. Cardiovascular: Rate and Rhythm: Normal rate and regular rhythm. Pulses: Normal pulses. Heart sounds: Normal heart sounds. Pulmonary: Effort: Pulmonary effort is normal. Breath sounds: Normal breath sounds. Abdominal: General: Abdomen is flat. Bowel sounds are normal. Palpations: Abdomen is soft. Musculoskeletal: General: Normal range of motion. Cervical back: Normal range of motion and neck supple. Skin: General: Skin is warm and dry. Capillary Refill: Capillary refill takes less than 2 seconds. Neurological: General: No focal deficit present. Mental Status: He is alert and oriented to person, place, and time. Mental status is at baseline. Psychiatric: Mood and Affect: Mood normal. Assessment/Plan Problem List Items Addressed This Visit ADD (attention deficit disorder) without hyperactivity - Primary Patient's Current ADD is controlled with current dose No evidence of overuse or abuse Weight has been stable Encouraged Medication Holidays PDMP reviewed F/U routinely every 3 months Well adult exam Modest Alcohol consumption No Tobacco Seat Belt use Exercise Regularly No Text Drive Social Accountability Relevant Orders CBC and differential Comprehensive metabolic panel Lipid panel PSA Benign essential hypertension (CMS/HCC) Our specific goals, for your hypertension, is to keep your blood pressure less than 140/90, and the importance of weight control. We made recommendations on how to control your blood pressure, and minimize your risk of these copmplications. We also discussed your current barriers to a healthy living and importance of healthy diet and exercise. Prior to your visit today we have reviewed your chart and formed a plan to assist with providing you the best possible care. We reviewed the possible complications of hypertension including, stroke, heart failure and kidney impairment. In addition, we discussed your medications, the importance of taking them as prescribed. DASH diet handouts Relevant Orders CBC and differential Comprehensive metabolic panel Gastroesophageal reflux disease without esophagitis Meds refilled and are effective Relevant Medications esomeprazole (NexIUM) [address] capsule Other Relevant Orders CBC and differential Other Visit Diagnoses Abnormal glucose tolerance test Relevant Orders Comprehensive metabolic panel Nocturia Relevant Orders PSA Screening for lipid disorders Relevant Orders Lipid panel Follow up in about 6 months (around 03/22/2025) for Hypertension. documented in this encounter [facility] 09-10-2024 History of Presen t illness Narrative Images from the original note were not included. CHIEF COMPLAINT REASON FOR VISIT : Follow up HPI: Omar Elizabeth is a 43 y.o. male who presents for fatigue, hypersomnia, sleep, LION. Adderall helps his focus, fatigue and daytime sleepiness. He is noticing improvement in sleeping with switching shifts. He feels like he has pinched nerves in both arms when he elevates more than 90 degrees. Hands and arms will go numb. He will have neck pain for days after working up and doing push ups. Declined flu CURRENT MEDICATIONS: ALLERGIES/DISCONTINUE MEDICATIONS Current Outpatient Medications Medication Instructions amphetamine-dextroamphetamine XR (Adderall XR) 30 MG 24 hr capsule 60 mg, Oral, Every morning, Do not crush or chew. atenolol (TENORMIN) 50 mg, Oral, Daily busPIRone (BUSPAR) 15 mg, Oral, 2 times daily esomeprazole (NEXIUM) 40 mg, Oral, Daily before breakfast, Do not open capsule. famotidine (PEPCID) 20 mg, Oral, Nightly Allergies Allergen Reactions Penicillins Anaphylaxis and Unknown Ciprofloxacin Other Duloxetine Hcl Unknown Penicillin G There are no discontinued medications. PAST MEDICAL HISTORY: SURGICAL/SOCIAL/FAMILY HISTORY DEPRESSION SCREEN: Past Medical History: Diagnosis Date ADHD ([facility]) COVID-19 11/06/2020 unvaccinated H/O CT scan of abdomen 12/19/2018 prominent bladder wall. No kidney stone. Headaches, cluster History of being hospitalized 11/06/2020 [facility] for NSTEMI Normal Echo, Positive Covid. Troponin 1 positive, Troponin 2 and 3 normal History of echocardiogram 11/07/2020 Echo shows normal EF 60-65% Hypertension ([facility]) NSTEMI (non-ST elevated myocardial infarction) ([facility]) 11/06/2020 S/P rotator cuff repair right Sleep apnea 2009 Past Surgical History: Procedure Laterality Date ARTHROCENTESIS, RIGHT SHOULDER ROTATOR CUFF REPAIR Right 2011 arthroscopy TENDON injection tendon origin/insertion WISDOM TOOTH EXTRACTION 2001 Social History Tobacco Use Smoking status: Former Current packs/day: 0.00 Types: Cigarettes Quit date: 10/28/2002 Years since quittin.8 Smokeless tobacco: Former Types: Snuff Quit date: 04/30/2023 Substance Use Topics Alcohol use: Not Currently Alcohol/week: 1.0 standard drink of alcohol Comment: ETOH once a month. Caffeine intake: coffee Drug use: Never Family History Problem Relation Name Age of Onset Hypertension Mother Sherley Cancer Mother Sherley Anxiety disorder Mother Sherley Hyperlipidemia Father Ty Hypertension Father Ty Heart disease Father Ty Depression: Not on file REVIEW OF SYMPTOMS: Review of Systems Constitutional: Negative for chills, fatigue and fever. HENT: Negative for tinnitus. Eyes: Negative for photophobia. Respiratory: Negative for shortness of breath. Cardiovascular: Negative for chest pain. Gastrointestinal: Negative for nausea and vomiting. Genitourinary: Negative for frequency. Musculoskeletal: Positive for neck pain and neck stiffness. Negative for back pain and gait problem. Neurological: Positive for dizziness and headaches. Negative for tremors, weakness, light-headedness and numbness. Psychiatric/Behavioral: Negative. OBJECTIVE: 06/04/2024 9:08 AM 05/18/2024 1:31 PM 05/11/2024 2:54 PM Vitals BMI 31.33 kg/m2 31.74 kg/m2 31.74 kg/m2 BSA (m2) 2.31 m2 2.32 m2 2.32 m2 Systolic 132 132 130 Diastolic 80 82 85 Heart Rate 67 76 SpO2 97 % 98 % Resp 16 Height (in) 6' 6' Weight (lb) 231 234 234 Visit Report Report Report Report EXAM: Neurological ExamMental Status Awake, alert and oriented to person, place and time. Oriented to person, place and time. Recent and remote memory are intact. Speech is normal. Language is fluent with no aphasia. Attention and concentration are normal. Cranial Nerves CN II: Visual acuity is normal. Visual monique full to confrontation. CN III, IV, : Extraocular movements intact bilaterally. Normal lids and orbits bilaterally. Pupils equal round and reactive to light bilaterally. CN V: Facial sensation is normal. CN VII: Full and symmetric facial movement. CN VIII: Hearing is normal. CN XII: Tongue midline without atrophy or fasciculations. Motor muscle tone. Increased cervical/neck paraspinal muscles. Right Left Wrist flexion 5 5 Wrist extension 5 5 Right Left Deltoid 5 5 Biceps 5 5 Triceps 5 5 Wrist flexor 5 5 Wrist extensor 5 5 Glutei 5 5 Iliopsoas 5 5 Quadriceps 5 5 Gastrocnemius 5 5 Anterior tibialis 5 5 Posterior tibialis 5 5 Sensory Light touch is normal in upper and lower extremities. Pinprick is normal in upper and lower extremities. Vibration is normal in upper and lower extremities. Reflexes Right Left Brachioradialis 2+ 2+ Biceps 2+ 2+ Patellar 2+ 2+ Achilles 2+ 2+ Right Plantar: downgoing Left Plantar: downgoing Right pathological reflexes: Lisa's absent. Ankle clonus absent. Left pathological reflexes: Lisa's absent. Ankle clonus absent. Coordination [id number], rapid alternating movements and [id number] normal bilaterally without dysmetria. Gait Normal casual, toe, heel and tandem gait. Romberg is absent. 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 I will obtain an EMG BUE with nerve conduction studies and needle electrode exam to assess for a peripheral nerve process and help to differentiate between the above mentioned possible etiologies for the patient's symptoms and explain the findings on neurological exam. This EMG/NCS study will help determine the severity of this process, determine if the process is axon loss or demyelinating in type, determine the presence of active axon loss, and help with proper localization of this process. I recommended b1/thiamine for numbness/tingling/nerve health. He does work out and is active, he has tried OTC medications and home exercises for 6-8 weeks. He has tried steroid injections which didn't really help but we only completed one round. 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 Patients with significant delays in P300 often report memory loss and etiology more significant due to inattention. Reduced brain activity related to attention. Frontal lobe dysfunction consistent with signs of inattention, lack of focus. Evidence of possible fatigue, depression and anxiety in addition to insomnia. He is treated with Adderall and this improves his symptoms. This was discussed with patient all questions answered. Total time 30 minutes spent reviewing records, performing medically appropriate exam, counseling , education, ordering medication, tests, and/or procedures, documenting health information into the health record, communicating results to the patient, and coordinating care. documented in this encounter [facility] 08-03-2024 Miscellaneous Notes OARRS reviewed documented in this encounter [facility] 08-03-2024 Telephone encounter Note OARRS reviewed [facility] 07-30-2024 Hospital Discharg e instructions Patient Education 07/30/2024 15:45:06 Spermatocele Spermatocele A spermatocele is a fluid-filled sac (cyst) inside the sac that holds the testicles (scrotum). This type of cyst often forms in the epididymis. The epididymis is a coiled tube at the top of each testicle, and this tube is where sperm are stored. The cyst sometimes forms along a tube called the vas deferens, which is a tube that carries sperm away from the epididymis. Spermatoceles are usually painless. Most cysts are small, but they can grow larger. Spermatoceles are not cancerous (are benign). What are the causes? The cause of this condition is not known. However, this condition usually results from a blockage in one of the many small tubes (tubules) that carry sperm from your testicle to your vas deferens. What are the signs or symptoms? In most cases, small cysts do not cause symptoms. However, symptoms sometimes occur. Symptoms of this condition include: Dull pain. A feeling of heaviness. An enlarged scrotum, if your cyst is large. How is this diagnosed? This condition is diagnosed based on a physical exam. You or your health care provider may notice your cyst when feeling your scrotum. Your health care provider may shine a light through (transilluminate) your scrotum to see if light will pass through your cyst. You may have an ultrasound of the scrotum to rule out a tumor. How is this treated? Small spermatoceles do not need to be treated. If your spermatocele has grown large or is uncomfortable, your health care provider may recommend surgery to remove it. Follow these instructions at home: Check your spermatocele regularly for any changes. Do regular self-exams of your scrotum. Keep all follow-up visits. This is important. Contact a health care provider if: Your spermatocele gets larger. You have pain in your scrotum. Your spermatocele comes back after treatment. Get help right away if: You experience severe pain and redness of your scrotum. Summary A spermatocele is a fluid-filled sac, or a cyst, inside the sac that holds the testicles (scrotum). This condition is usually painless, and it is not cancerous (is benign). Your health care provider may recommend surgery to remove your spermatocele if it grows large or is uncomfortable. If you have a spermatocele, check for any changes and do self-exams of your scrotum. Keep all follow-up visits. This is important. This information is not intended to replace advice given to you by your health care provider. Make sure you discuss any questions you have with your health care provider. Document Revised: 06/04/2022 Document Reviewed: 06/04/2022 [employer] Patient Education 2023 [employer]. Follow Up Care 07/22/2024 14:10:55 With:Matthew PERDOMO, PETE Arnold, URO Address: When: Unknown [facility] 07-30-2024 Note Patient Education Urology Spermatocele A spermatocele is a fluid-filled sac (cyst) inside the sac that holds the testicles (scrotum). This type of cyst often forms in the epididymis. The epididymis is a coiled tube at the top of each testicle, and this tube is where sperm are stored. The cyst sometimes forms along a tube called the vas deferens, which is a tube that carries sperm away from the epididymis. Spermatoceles are usually painless. Most cysts are small, but they can grow larger. Spermatoceles are not cancerous (are benign). What are the causes? The cause of this condition is not known. However, this condition usually results from a blockage in one of the many small tubes (tubules) that carry sperm from your testicle to your vas deferens. What are the signs or symptoms? In most cases, small cysts do not cause symptoms. However, symptoms sometimes occur. Symptoms of this condition include: ? Dull pain. ? A feeling of heaviness. ? An enlarged scrotum, if your cyst is large. How is this diagnosed? This condition is diagnosed based on a physical exam. ? You or your health care provider may notice your cyst when feeling your scrotum. ? Your health care provider may shine a light through (transilluminate) your scrotum to see if light will pass through your cyst. You may have an ultrasound of the scrotum to rule out a tumor. How is this treated? Small spermatoceles do not need to be treated. If your spermatocele has grown large or is uncomfortable, your health care provider may recommend surgery to remove it. Follow these instructions at home: ? Check your spermatocele regularly for any changes. ? Do regular self-exams of your scrotum. ? Keep all follow-up visits. This is important. Contact a health care provider if: ? Your spermatocele gets larger. ? You have pain in your scrotum. ? Your spermatocele comes back after treatment. Get help right away if: ? You experience severe pain and redness of your scrotum. Summary ? A spermatocele is a fluid-filled sac, or a cyst, inside the sac that holds the testicles (scrotum). This condition is usually painless, and it is not cancerous (is benign). ? Your health care provider may recommend surgery to remove your spermatocele if it grows large or is uncomfortable. ? If you have a spermatocele, check for any changes and do self-exams of your scrotum. ? Keep all follow-up visits. This is important. This information is not intended to replace advice given to you by your health care provider. Make sure you discuss any questions you have with your health care provider. Document Revised: 06/04/2022 Document Reviewed: 06/04/2022 [employer] Patient Education ? 2023 [employer]. [facility] 07-03-2024 Telephone encounter Note OARRS reviewed. [facility] 07-03-2024 Miscellaneous Notes OARRS reviewed. documented in this encounter [facility] 06-18-2024 Procedure note [facility] 08-09-2023 Evaluation note Encounter Date Diagnosis Assessment Notes Jul, Left otitis media with effusion (ICD-10 - H65.92) Drink plenty fluids, get plenty of rest. Take the amoxicillin as prescribed until gone. Take the prednisone as prescribed until gone starting tomorrow. Use the fluticasone nasal spray as prescribed until your symptoms improve. Take Tylenol or Motrin as needed for aches pains or fevers. Follow-up with your family physician if no improvement in 2 to 3 days. Go to the ER for worsening symptoms or concerns Jul, History of vertigo (ICD-10 - Z87.898) Jul, Other Ear fluid (middle ear effusion) material was printed [employer] Other 03-28-2022 NotePROCEDURE: XR KNEE LT 4V or > COMPARISON: None. HISTORY: Pain in left knee FINDINGS: BONES:No acute fracture or dislocation. Fragmented appearance of the anterior tibial tubercle, chronic apophysitis. SOFT TISSUES:Negative. No visible soft tissue swelling. EFFUSION:None visible. OTHER: Negative. IMPRESSION: No acute abnormality Electronically authenticated by: NELIA MERAZ Date: 2022-01-22 07:28[facility]09-26-2021 NotePROCEDURE: XR CHEST 1 V REASON FOR STUDY/CLINICAL HISTORY: CHEST PAIN, UNSPECIFIED. COMPARISON STUDY: 11/06/2020 TECHNIQUE: Single view(s) of the chest presented for interpretation. FINDINGS: No acute cardiopulmonary process. Left leads overlie the patient. Normal cardiomediastinal silhouette. No focal consolidation, edema, or effusion. No pneumothorax. No acute appearing focal significant bony abnormality. IMPRESSION: No acute localizing pulmonary pathology. Electronically authenticated by: TINA RAMIREZ Date: 2021-07-23 01:34[facility] No data available for this section [facility] Evaluation noteNo assessment information available [facility] Work Phone: Evaluation note* Diagnosis ADD (attention deficit disorder) without hyperactivity Attention deficit disorder without mention of hyperactivity documented in this encounter [facility] HealthcareEvaluation note* Diagnosis Well adult exam- Primary Routine general medical examination at a health care facility Nocturia Essential hypertension (CMS/HCC) Unspecified essential hypertension Ear infection- Primary Unspecified otitis media Vertigo Dizziness and giddiness Epididymitis without abscess- Primary Unspecified orchitis and epididymitis ADD (attention deficit disorder) without hyperactivity Attention deficit disorder without mention of hyperactivity documented in this encounter [facility] HealthcareEvaluation note* Diagnosis Well adult exam- Primary Routine general medical examination at a health care facility Nocturia Essential hypertension (CMS/HCC) Unspecified essential hypertension Ear infection- Primary Unspecified otitis media Vertigo Dizziness and giddiness Epididymitis without abscess- Primary Unspecified orchitis and epididymitis ADD (attention deficit disorder) without hyperactivity- Primary Attention deficit disorder without mention of hyperactivity Neck pain Cervicalgia Disturbance of skin sensation Cervical paraspinal muscle spasm Spasm of muscle documented in this encounter [facility]* Diagnosis Well adult exam- Primary Routine general medical examination at a health care facility Nocturia Essential hypertension (CMS/HCC) Unspecified essential hypertension Ear infection- Primary Unspecified otitis media Vertigo Dizziness and giddiness Epididymitis without abscess- Primary Unspecified orchitis and epididymitis ADD (attention deficit disorder) without hyperactivity- Primary Attention deficit disorder without mention of hyperactivity Gastroesophageal reflux disease without esophagitis Esophageal reflux Abnormal glucose tolerance test Impaired glucose tolerance test Benign essential hypertension (CMS/HCC) Essential hypertension, benign Nocturia Well adult exam Routine general medical examination at a [facility] care facility Screening for lipid disorders documented in this encounter [facility]* Diagnosis Well adult exam- Primary Routine general medical examination at a health care facility Nocturia Essential hypertension (CMS/HCC) Unspecified essential hypertension Ear infection- Primary Unspecified otitis media Vertigo Dizziness and giddiness Epididymitis without abscess- Primary Unspecified orchitis and epididymitis ADD (attention deficit disorder) without hyperactivity- Primary Attention deficit disorder without mention of hyperactivity Gastroesophageal reflux disease without esophagitis Esophageal reflux Abnormal glucose tolerance test Impaired glucose tolerance test Benign essential hypertension (CMS/HCC) Essential hypertension, benign Nocturia Well adult exam Routine general medical examination at a health care facility Screening for lipid disorders ADD (attention deficit disorder) without hyperactivity Attention deficit disorder without mention of hyperactivity documented in this encounter [facility]* Diagnosis Well adult exam- Primary Routine general medical examination at a health care facility Nocturia Essential hypertension (CMS/HCC) Unspecified essential hypertension Ear infection- Primary Unspecified otitis media Vertigo Dizziness and giddiness Epididymitis without abscess- Primary Unspecified orchitis and epididymitis ADD (attention deficit disorder) without hyperactivity- Primary Attention deficit disorder without mention of hyperactivity Gastroesophageal reflux disease without esophagitis Esophageal reflux Abnormal glucose tolerance test Impaired glucose tolerance test Benign essential hypertension (CMS/HCC) Essential hypertension, benign Nocturia Well adult exam Routine general medical examination at a health care facility Screening for lipid disorders ADD (attention deficit disorder) without hyperactivity Attention deficit disorder without mention of hyperactivity documented in this encounter [facility]* Diagnosis Well adult exam- Primary Routine general medical examination at a health care facility Nocturia Essential hypertension (CMS/HCC) Unspecified essential hypertension Ear infection- Primary Unspecified otitis media Vertigo Dizziness and giddiness Epididymitis without abscess- Primary Unspecified orchitis and epididymitis ADD (attention deficit disorder) without hyperactivity- Primary Attention deficit disorder without mention of hyperactivity Gastroesophageal reflux disease without esophagitis Esophageal reflux Abnormal glucose tolerance test Impaired glucose tolerance test Benign essential hypertension (CMS/HCC) Essential hypertension, benign Nocturia Well adult exam Routine general medical examination at a health care facility Screening for lipid disorders ADD (attention deficit disorder) without hyperactivity Attention deficit disorder without mention of hyperactivity documented in this encounter [facility] and physical note Author Vanessa Jernigan [facility] June 18, 2024 9:41am Note Date/Time June 18, 2024 9: 41am [facility] [address] [place] [address] Gastroenterology H&P Signed Patient: Balaji Elizabeth MR#: [id number] : 1980 Acct:[id number] Age/Sex: 43 / M Adm Date: 4 Loc: Room: Type: [facility] Attending Dr: Vanessa Jernigan DO Copies to: DO Georgia Richard MD~ Date of Service: 06/18/2024 HISTORY & PHYSICAL: Patient's history with special attention to the cardiovascular, pulmonary systems and the current problem was reviewed with the patient immediately prior to the procedure. Present medications and doses reviewed in the EMR. Allergies and pertinent laboratory tests were also reviewedat this time in the EMR. The physical examination, as below, was then performed. Indication, assessment and HPI: 3-year-old male who presents for EGD for GERD and globus. Patient is on chronic omeprazole. No prior EGD Family history of GI malignancy? No PHYSICAL EXAMINATION General appearance: cooperative, NAD Skin: No jaundice, no rash or lesions Head: NCAT Eyes: Anicteric Neck: Supple Lungs: Normal respiratory effort, no use of accessory muscles Abdomen: Soft, nondistended Neuro: No focal deficits, Ox3. REVIEW OF SYSTEMS Constitutional: Denies malaise, fevers Cardiovascular: Denies chest pain, palpitations Respiratory: Denies shortness of breath, wheezing Gastrointestinal: As per HPI Genitourinary: Denies dysuria, polyuria Musculoskeletal: Denies joint swelling, joint stiffness Neurological: Denies confusion, numbness, tingling Endocrine: Denies fatigue Written informed consent obtained from the patient. Risks (including but not limited to perforation, infection, bloating, bleeding, need for emergent surgeryand loss of life), benefits and alternatives explained and questions answered. The patient verbalized understanding. Based on history patient is an appropriate candidate for the procedure. Vanessa Jernigan DO Documented By: Vanessa Jernigan DO 06/18/24 0940 Signed By: <Electronically signed by Vanessa Jernigan DO> 06/18/24 0941 [facility] Work Phone: History general Narrative - Reported* Type Description Date Medical History Focus Issues - Sees Neurolgy Medical History hypertension Medical History anxiety Surgical History Rotator Cuff - Right 2011 [facility] Other Hospital Discharge instructions Additional Instructions DISCHARGE INSTRUCTIONS FOR UPPER ENDOSCOPY WHAT TO EXPECT: - You may feel full, gassy or cramping after your procedure. In some cases, this may be from a few hours to a day. Walking may help relieve the discomfort. - Your throat may feel sore today from the scope that the doctor passed through your throat to visualize your stomach. Take a throat lozenge or suck on ice to ease the discomfort. - You may notice some streaks of blood in your sputum if the doctor has taken a biopsy. - You should begin to recover from anesthesia within 1 hour of the procedure, however may feel groggy for the next 24 hours. DO's AND DON'Ts: - Call your doctor right away if you have a hard abdomen, severe pain, vomiting or if you cough up large amounts of blood. - Call your doctor if you develop any rashes, hives or difficulty breathing. - If you take 81 mg aspirin for your heart it is safe to resume this medication. - If you take other blood thinner medications your doctor will instruct you when these can safely be resumed. - Do NOT drive for 24 hours. - Do NOT operate machinery such as power tools, lawn mowers, snow blowers, sewing machines, etc. for 24 hours. - Avoid alcoholic beverages and drugs for allergies, nerves, or sleep. - Do NOT stay alone. Do NOT leave your child unattended. - Do NOT make important personal or business decisions or sign any legal documents. - Eat solid foods and drink liquids in smaller amounts than usual until normal appetite returns. If you should experience an upset stomach, liquids high in sugar content (soda, Khanh-Aid, non-acid juices) are recommended. - Do NOT smoke. - Do take it easy today. You need not stay in bed, but avoid strenuous activities such as jogging or working out. FOLLOW UP & RECOMMENDATIONS: -Please call the office and make a follow up appointment to see me if symptoms persist -Notify the doctor if you have any problems. -Follow up with PCP. -Office number [phone]. [facility] Work Phone: Progress note No data available for this section [facility] Summary Purpose Family History Unknown Family Member Name Dates Details Family history of malignant neoplasm of breast: Mother(V16.3, Z80.3) Status:Active Family history of cardiovasc ular disease: Father(V17.49, Z82.49) Status:Active S/P CABG x 3: Father(V45.81, Z95.1) Status:Active Family history of diabetes m ellitus: Brother(V18.0, Z83.3) Status:Active Unknown Family Member Name Dates Details Family history of malignant neoplasm of breast: Mother(V16.3, Z80.3) Status:Active Family history of cardiovasc ular disease: Father(V17.49, Z82.49) Status:Active S/P CABG x 3: Father(V45.81, Z95.1) Status:Active Family history of diabetes m ellitus: Brother(V18.0, Z83.3) Status:Active Relationship Condition Age at Onset Recorded Date/T wilfrido brother Diabetes mellitus Unknown father Hypertension Unknown family member Family history of other condition Unknow n mother Malignant neoplasm Unknown Advance Directives Advance Directive Response Recorded Date/ Time Advance Directives No November 06, 2020 10:29am Chief Complaint BALAJI ELIZABETH is being seen for follow-up of a hospitalization for.* BALAJI ELIZABETH is being seen for follow-up of a hospitalization for. * Patient is a 40-year-old gentleman who returns at his own request and the request of his primary physician to further address recurrent shortness of breath associated with anxiety. Recent [place] emergency room evaluation proceeded and was noted to have minor troponin elevation per his reports we do not have these reports. He did not have any chest heaviness, pressure or discomfort. * Earlier this year in October he underwent consultation and stress imaging for chest discomfort thatwas completely normal on the Gume protocol at over 12 minutes, greater than 14 METS of aerobic exercise activity with a normal perfusion scan and normal stress ECG. * We basically recommend reassurance, counseling regarding his anxiety associated dyspnea, and discussed ultra high-sensitivity troponins with him and his this morning. * Recommendations, continue antihypertensive therapies, follow-up as needed. Chief Complaint and Reason for Visit Chief Complaint GERD, globus sensati on GERD, globus sensation Additional Source Comments (unrecognized sect ion and content) No Status Records FoundNo Status Records FoundNo Status Records FoundNo Status Records FoundNo Status Records FoundNo Status Records FoundNo Status Records FoundNo Status Records FoundNo Status Records Found INFORMATION SOURCE (unrecogn ized section and content) DATE CREATED AUTHOR 05/12/2021 [facility] DATE CREATED AUTHOR AUTHOR'S ORGANIZ ATION 08/09/2021 [employer] DATE CREATED AUTHOR AUTHOR'S ORGANIZ ATION 01/25/2022 [facility] DATE CREATED AUTHOR AUTHOR'S ORGANIZ ATION 12/28/2023 [facility] DATE CREATED AUTHOR AUTHOR'S ORGANIZ ATION 01/12/2024 [facility] DATE CREATED AUTHOR AUTHOR'S ORGANIZ ATION 07/02/2024 [facility] DATE CREATED AUTHOR AUTHOR'S ORGANIZ ATION 08/01/2024 [facility] DATE CREATED AUTHOR AUTHOR'S ORGANIZ ATION 09/25/2024 [facility] DATE CREATED AUTHOR AUTHOR'S ORGANIZ ATION 09/26/2024 [facility] REASON FOR VISIT (unrecogniz ed section and content) Reason Onset Date Comments Med Refill 07/31/2024 Reason Onset Date Comments Med Refill 08/31/2024 Reason Comments Annual Exam Reason Onset Date Comments Med Refill 10/01/2024 Reason Onset Date Comments Med Refill 07/02/2024 Reason Onset Date Comments Med Refill 2024 Reason Onset Date Comments Med Refill 12/01/2024 Care Teams (unrecognized sec tion and content) Team Status: Active Member Role Status Dates Georgia Ying MD Primary Care Provider Active Team Status: Inactive Member Role Status Dates Georgia Ying MD Primary Care Provider Active S tart: June 18, 2024 End: June 18, 2024 Vanessa Jernigan DO Attending Provider Active St art: June 18, 2024 End: June 18, 2024 Team Status: Active Member Role Status Dates Georgia Ying MD Primary Care Provider Active S tart: June 18, 2024 Vanessa Jernigan DO Attending Provider, Other Provider Active Start: June 18, 2024 Electrocardiograph Technician Relationship Specialty Start Date End Date Georgia Ying MD [address] [facility] [address] [place] [address] PCP - General Family Medicine 05/14/23 Electrocardiograph Technician Relationship Specialty Start Date End Date Georgia Ying MD [address] [facility] [address] [place] [address] PCP - General Family Medicine 05/14/23 Electrocardiograph Technician Relationship Specialty Start Date End Date Georgia Ying MD [address] [facility] [address] [place] [address] PCP - General Family Medicine 05/14/23 Electrocardiograph Technician Relationship Specialty Start Date End Date Georgia Ying MD [address] [facility] [address] [place] [address] PCP - General Family Medicine 05/14/23 Electrocardiograph Technician Relationship Specialty Start Date End Date Georgia Ying MD [address] [facility] [address] [place] [address] PCP - General Family Medicine 05/14/23 Electrocardiograph Technician Relationship Specialty Start Date End Date Georgia Ying MD [address] [facility] [address] [place] [address] PCP - General Family Medicine 05/14/23 Electrocardiograph Technician Relationship Specialty Start Date End Date Georgia Ying MD [address] [facility] [address] [place] [address] PCP - General Family Medicine 05/14/23 Electrocardiograph Technician Relationship Specialty Start Date End Date Georgia Ying MD [address] [facility] [address] [place] [address] PCP - General Family Medicine 05/14/23 Electrocardiograph Technician Relationship Specialty Start Date End Date Georgia Ying MD [address] [facility] [address] [place] [address] PCP - General Family Medicine 05/14/23 Electrocardiograph Technician Relationship Specialty Start Date End Date Georgia Ying MD [address] [facility] [address] [place] [address] PCP - General Family Medicine 05/14/23 FOR RECORDS PERTAINING TO PATIENTS WHO ARE OR HAVE BEEN ENROLLED IN A CHEMICAL DEPENDENCY/SUBSTANCEABUSE PROGRAM, SOME INFORMATION MAY BE OMITTED. This clinical summary was aggregated from multiple sources. Caution should be exercised in using it in the provision of clinical care. This summary normalizes information from multiple sources, and as a consequence, information in this document may materially change the coding, format and clinical context of patient data. In addition, data may be omitted in some cases. CLINICAL DECISIONS SHOULD BE BASED ON THE PRIMARY CLINICAL RECORDS. [facility]. provides no warranty or guarantee of the accuracy or completeness of information in this document.
--- NOTE | 2025-01-21 19:28 | PC.NURSE ---
this patient complains of neck pain and on and off bilateral leg numbness for the past 30 days. this patient denies any recent injury or falls or trauma to cause this neck pain. alos patient complains of left side facial numbness onset 1 day, this is also on and off
[2025-01-21 19:33] LABS: Basophils Percent Auto 0.5 % (0.2-2.0); Eosinophils Absolute Auto 0.1 10^3/uL (0.0-0.7); Eosinophils Percent Auto 1.3 % (0.9-7.0); Hematocrit 53.6 % (42.0-54.0); Hemoglobin 18.8 g/dL (14.0-18.0); Immature Granulocytes Abs Auto 0.01 10^3/uL (0.00-0.03); Immature Granulocytes Pct Auto 0.2 % (0.0-0.5); Lymphocytes Absolute Auto 2.3 10^3/uL (1.2-3.8); Mean Corpuscular HGB Conc 35.1 g/dL (29.9-35.2); Mean Corpuscular Hemoglobin 31.2 pg (25.9-34.0); Mean Platelet Volume 10.3 fL (9.5-13.5); Monocytes Absolute Auto 0.5 10^3/uL (0.3-0.8); Monocytes Percent Auto 7.7 % (1.7-12.0); Neutrophils Absolute Auto 3.4 10^3/uL (1.4-6.5); Neutrophils Percent Auto 54.3 % (43.0-75.0); Platelet Count 193 10^3/uL (150-450); Red Blood Count 6.02 10^6/uL (4.70-6.10); Red Cell Distribution Width 12.1 % (11.0-15.0); White Blood Count 6.3 10^3/uL (4.0-11.0)
[2025-01-21] MEDS: DEXAMETHASONE SOD PHOS 10 MG/ML VIAL IV (19:52)
[2025-01-21 19:53] LABS: Alanine Aminotransferase 44 U/L (16-63); Albumin Globulin Ratio 1.3; Albumin Level 4.3 g/dL (3.4-5.0); Alkaline Phosphatase 87 U/L (46-116); Anion Gap 12.2; Aspartate Amino Transferase 33 U/L (15-37); BUN Creatinine Ratio 12.7; Bilirubin Total 0.8 mg/dL (0.2-1.0); Calcium 9.3 mg/dL (8.5-10.1); Carbon Dioxide 30.5 mmol/L (21.0-32.0); Chloride 103 mmol/L (98-107); Estimated GFR (African America >60 (>=60 mL/min/1.73m^2); Estimated GFR (Non-African Ame >60 (>=60 mL/min/1.73m^2); Globulin 3.4 g/dL; Glucose 106 mg/dL (74-106); Magnesium 1.8 mg/dL (1.8-2.4); Potassium 3.7 mmol/L (3.5-5.1); Sodium 142 mmol/L (136-145); Thyroid Stimulating Hormone 1.662 uIU/mL (0.358-3.740); Total Protein 7.7 g/dL (6.4-8.2); Troponin I High Sensitivity 42.4 pg/mL (4.0-76.1)
[2025-01-21] MEDS: LORAZEPAM 0.5 MG TABLET PO (21:05)
--- NOTE | 2025-01-21 21:10 | PC.NURSE ---
i gave this patient verbal and paper discharge orders along with 1 take home medication for this patient. this patient voices yes to understanding these discharge orders and take home medication. at time of discharge this patient voices no concerns and shows no signs of distress. this patient was told once taking his take medication tonight do not drive automobile, operate machine
== END 2025-01-21 21:13 | disposition home or self-care (01) ==
PROVIDERS: Physician Assistant; Emergency Provider Internal Medicine; PCP Family Medicine
DX: M54.2 Cervicalgia (principal); R20.2 Paresthesia of skin; F41.9 Anxiety disorder, unspecified
CPT/HCPCS: 36415; 70450; 70496; 70498; 72125; 80053; 83735; 84443; 84484; 85025; 93005; 96374; 99285; J1100; Q9967